=== PATIENT | female | born 1940 | race Caucasian/White ===

== ENCOUNTER → 2019-07-17 | Outpatient (CLI) | payer OTHER ==
--- NOTE | 2019-07-18 00:40 | PCVCIMAG ---
EXAM: BILATERAL SUPERFICIAL VENOUS DUPLEX INDICATION: Leg pain and swelling. FINDINGS: Right leg: No thrombus in the common femoral, main femoral, or popliteal veins. These veins are compressible. Right Great Saphenous Vein: At the saphenofemoral junction the diameter is 6.8 mm, in the mid thigh it is absent, and in the calf it is 3.7 mm. There is not significant venous insufficiency/reflux throughout. Venous insufficiency/reflux duration is 0 seconds. Right Small Saphenous Vein: At the saphenopopliteal junction the diameter is 4.3 mm, and in the calf it is 4.2 mm. There is not significant venous insufficiency/reflux throughout. Venous insufficiency/reflux duration is 0 seconds. There is a cranial extension present. Left leg: No thrombus in the common femoral, main femoral, or popliteal veins. These veins are compressible. Left Great Saphenous Vein: At the saphenofemoral junction the diameter is 11.0 mm, in the mid thigh it is 11.1 mm, and in the calf it is 7.0 mm. There is significant venous insufficiency/reflux throughout. Venous insufficiency/reflux duration is 1.2 seconds. Left Small Saphenous Vein: At the saphenopopliteal junction the diameter is 3.9 mm, and in the calf it is 3.9 mm. There is not significant venous insufficiency/reflux throughout. Venous insufficiency/reflux duration is 0.3 seconds. There is not a cranial extension present. IMPRESSION: Right Great Saphenous Vein: No significant venous insufficiency/reflux is present as noted above. Right Small Saphenous Vein: No significant venous insufficiency/reflux is present as noted above. Left Great Saphenous Vein: Significant venous insufficiency/reflux is present as noted above. Left Small Saphenous Vein: No significant venous insufficiency/reflux is present as noted above. Incidental note is made of venous insufficiency/reflux in the right and main femoral veins with reflux duration up to 0.6 seconds. LOC:[id number]
== END | disposition home or self-care (01) ==
LOC: PCVCIMAG 12:44
PROVIDERS: ATTEND Emergency Medicine
DX: E11.42 Type 2 diabetes mellitus with diabetic polyneuropathy (principal); L97.929 Non-pressure chronic ulcer of unspecified part of left lower leg with unspecified severity; M79.669 Pain in unspecified lower leg; M79.89 Other specified soft tissue disorders; Z79.4 Long term (current) use of insulin; Z88.1 Allergy status to other antibiotic agents
CPT/HCPCS: 93970

== ENCOUNTER → 2019-08-05 | Outpatient (CLI) | payer OTHER ==
--- NOTE | 2019-08-05 15:02 | PCVCIMAG ---
EXAM: BILATERAL LOWER EXTREMITY ARTERIAL DUPLEX INDICATION: Peripheral Arterial Disease. Leg pain. FINDINGS: Right Leg: Common femoral and profunda femoral arteries are patent. Superficial femoral and popliteal artery are patent. The anterior tibial, peroneal, and posterior tibial arteries are patent. Left Leg: Common femoral and profunda femoral arteries are patent. Increased systolic velocity 246 cm/s [place] superficial femoral artery consistent with 60-70% stenosis. Popliteal artery is patent. The anterior tibial, peroneal, and posterior tibial arteries are patent. IMPRESSION: No flow limiting stenosis in the right lower extremity. 60-70% stenosis [place] left superficial femoral artery. Otherwise no flow limiting stenosis in the left lower extremity. LOC:[id number]
== END | disposition home or self-care (01) ==
LOC: PCVCIMAG 11:32
PROVIDERS: ATTEND Nuclear Medicine Nuclear Cardiology
DX: I73.9 Peripheral vascular disease, unspecified (principal); M79.89 Other specified soft tissue disorders
CPT/HCPCS: 93925

== ENCOUNTER 2020-04-20 00:33 | Inpatient (IN) | payer MEDICARE ==
[~2020-04-20] VITALS: Ht 154.9 cm; Wt 107.1 kg
[2020-04-20 02:26] VITALS: BP 140/68
[2020-04-20] MEDS ORDERED: TORS20TA2 PO (03:07)
[2020-04-20] MEDS ORDERED: LACT1CAP2 PO (03:07)
[2020-04-20] MEDS ORDERED: OXYC1TAB15 PO (03:07)
[2020-04-20] MEDS ORDERED: LEVO75TA5 PO (03:07)
[2020-04-20] MEDS ORDERED: ASPI-630 PO (03:07)
[2020-04-20] MEDS ORDERED: ROPI0.254 PO (03:07)
[2020-04-20] MEDS ORDERED: FENT1PAT15 TP (03:07)
[2020-04-20] MEDS ORDERED: PANT40TA77 PO (03:07)
[2020-04-20] MEDS ORDERED: GABA300C18 PO (03:07)
[2020-04-20] MEDS ORDERED: MULT-445 PO (03:07)
[2020-04-20] MEDS ORDERED: MAGN400T5 PO (03:07)
[2020-04-20] MEDS ORDERED: POTA10TA12 PO (03:07)
[2020-04-20] MEDS ORDERED: INSU100V31 SQ (03:07)
[2020-04-20] MEDS ORDERED: INSU100I13 SQ (03:07)
[2020-04-20] MEDS ORDERED: GLIM4TAB8 PO (03:07)
[2020-04-20] MEDS ORDERED: NORT10CA PO (03:07)
[2020-04-20] MEDS ORDERED: AMLO5TAB10 PO (03:07)
[2020-04-20] MEDS: oxyCODONE/APAP 5/325 1 TAB TABLET PO PRN ×3 (03:31→21:02)
[2020-04-20 07:00] VITALS: BP 145/78
[2020-04-20] MEDS ORDERED: VANCOMYCIN PER PHARMACY MC PRN (09:30)
--- NOTE | 2020-04-20 09:40 | PDOC1 ---
History and Physical Date of Admission Date of Admission DATE: 04/20/20 TIME: 09:33 Source Source: Chart review, Patient History of Present Illness History of Present Illness Pt transferred from [facility] for worsening med problems. LE wounds that are not healing, wounds have looked worse and are now weeping. She has been on IV vanco and IV merrem outpatient for 3 weeks for these wounds and seeing Dr. Gregorio and she reports they are not improved. She also has new weigth gain, 5 lbs yesterday and 20lbs weight gain in a week. She has been taking her Torsemide and she complains about needing to use the bathroom every hour. She has marked hesitancy when she micturates, and often starts and stops, she has not seen a urologist. some weakness and leg pain, but that is standard she was admitted here to the COVID unit due to fever, SIRS pos, seen by me in full PPE Past Medical History Cardiovascular: CHF Pulmonary: No pertinent hx GI: No pertinent hx Musculoskeletal: low back pain Infectious disease: No pertinent hx Endocrine: Diabetes, Hypothyroidism Past Surgical History Past Surgical History: No pertinent history Family History Family History: Diabetes Social History Smoke: No ALCOHOL: none Drugs: None Current Medications Current Medications Current Medications Oxycodone/ Acetaminophen (Percocet 5/325) 1 tab PRN Q4HRS PRN PO PAIN Last administered on 04/20/20at 03:31; Start 04/20/20 at 03:15 Active Scripts Active Reported Lantus Solostar (Insulin Glargine,Hum.rec.anlog) 100 Unit/1 Ml Insuln.pen 25 Unit SQ BID Gabapentin (Gabapentin) 300 Mg Capsule 300 Mg PO HS Novolog (Insulin Aspart) 100 Unit/1 Ml Vial 100 Unit SQ TIDAC Torsemide 20 Mg Tablet 1 Tab PO BID Nortriptyline Hcl 10 Mg Capsule 1 Cap PO QHS Amlodipine Besylate 5 Mg Tablet 5 Mg PO DAILY FENTANYL 25mcg/hr (Fentanyl) 1 Each Patch.td72 1 Patch TP Q3DAYS Percocet 5-325 Mg Tablet (Oxycodone/Acetaminophen) 1 Each Tablet 1 Tab PO PRN Q4HRS PRN Glimepiride 4 Mg Tablet 1 Tab PO DAILY Multivitamins (Multivitamin) 1 Each Tablet 1 Tab PO MWF Aspirin 81 Mg Tab.chew 1 Tab PO DAILY Ropinirole Hcl 0.25 Mg Tablet 0.25 Mg PO TID Levothyroxine Sodium 75 Mcg Tablet 75 Mcg PO DAILYAC Magnesium Oxide 400 Mg Tablet 1 Tab PO BID Pantoprazole Sodium (Pantoprazole Sodium) 40 Mg Tablet.dr 40 Mg PO DAILYAC Acidophilus (Lactobacillus Acidophilus) 1 Each Capsule 1 Cap PO DAILY 14 Days Klor-Con 10 (Potassium Chloride) 10 Meq Tablet.er 1 Tab PO DAILY 30 Days Allergies Allergies: Coded Allergies: cyclosporine (Verified Allergy, Severe, 04/20/20) renal failure Sulfa (Sulfonamide Antibiotics) (Verified Allergy, Intermediate, Rash, 04/20/20) and hot flashes ROS General: YES: Fatigue, Malaise; No: Chills, Night Sweats, Appetite, Other PSYCHOLOGICAL ROS: No: Anxiety, Behavioral Disorder, Concentration difficultie, Decreased libido, Depression, Disorientation, Hostility, Irritablity, Memory difficulties, Mood Swings, Obsessive thoughts, Suicidal ideation, Other Eyes: No Blurry vision, No Decreased vision, No Double vision, No Dry eyes, No Excessive tearing, No Eye Pain, No Itchy Eyes, No Loss of vision, No Photophobia, No Scotomata, No Uses contacts, No Uses glasses, No Other HEENT: No: Heacaches, Visual Changes, Hearing change, Nasal congestion, Nasal discharge, Oral lesions, Sinus pain, Sore Throat, Epistaxis, Sneezing, Snoring, Tinnitus, Vertigo, Vocal changes, Other Respiratory: No: Cough, Hemoptysis, Orthopnea, Pleuritic Pain, Shortness of breath, SOB with excertion, Sputum Changes, Stridor, Tachypnea, Wheezing, Other Cardiovascular: No Chest Pain, No Palpitations, No Orthopnea, No Paroxysmal Noc. Dyspnea, No Edema, No Lt Headedness, No Other Gastrointestinal: No Nausea, No Vomiting, No Abdominal Pain, No Diarrhea, No Constipation, No Melena, No Hematochezia, No Other Genitourinary: YES Frequency, YES Retention, YES Other; No Dysuria, No Incontinence, No Hematuria, No Discharge, No Urgency, No Pain, No Flank Pain, No , No , No , No , No , No , No Musculoskeletal: Yes Gait Disturbance, Yes Joint Pain, Yes Joint Stiffness, Yes Muscular Weakness, Yes Pain In: (legs) Neurological: No Behavorial Changes, No Bowel/Bladder ControlChng, No Confusion, No Dizziness, No Headaches, No Impaired Coord/balance, No Memory Loss, No Numbness/Tingling, No Seizures, No Speech Problems, No Tremors, No Visual Changes, No Weakness, No Other Skin: No Dry Skin, No Eczema, No Hair Changes, No Lumps, No Mole Changes, No Mottling, No Nail Changes, No Pruritus, No Rash, No Skin Lesion Changes, No Other, No Acne Physical Exam General: Alert, Oriented X3, Cooperative, mild distress HEENT: PERRLA, EOMI, Mucous membr. moist/pink Lungs: Clear to auscultation, Normal air movement Heart: RRR, other (edema) Extremities: No cyanosis, Other (3 + LE edema) Skin: Other (marked LE wounds, weeping, other skin smooth and dry) Neuro: Normal speech Psych/Mental Status: Mental status NL, Mood NL Vitals Vitals Vital Signs Date Time Temp Pulse Resp B/P (MAP) Pulse Ox O2 Delivery O2 Flow Rate FiO2 04/20/20 05:03 Nasal Cannula 2.0 04/20/20 04:35 18 98 04/20/20 02:26 97.9 91 140/68 (92) 97.9 Labs Labs Laboratory Tests Test 04/20/20 07:55 Glucose (Fingerstick) 120 mg/dL (70-99) Laboratory Tests Test 04/20/20 07:55 Glucose (Fingerstick) 120 mg/dL (70-99) VTE Prophylaxis Ordered VTE Prophylaxis Devices: No VTE Pharmacological Prophylaxi: Yes Assessment/Plan Assessment/Plan acute LE wounds, cellulitis with wound infection to LE in Dm2, Dm2 in insulin with leg wounds, check A1c, consult wound care morbid obesity, BMI 47 CHF, acute on chronic systolic, on Demedex outpatient, consult CV team, but this may be edema from her sepsis and her leg infection LE edema, consult lymphedema OT team SEPSIS admit Justicifation of Admission Dx: Justifications for Admission: Justification of Admission Dx: Yes Cellulitis: Cellulitis (in Dm2, open wounds) LADI SALMERON MD Apr 20, 2020 09:40
[2020-04-20] MEDS ORDERED: VANCOMYCIN 2 GM in IV NORMAL SALINE 500ML BAG 500 ML IV ONE (10:00)
[2020-04-20 10:43] VITALS: BP 120/59
[2020-04-20] MEDS: amLODIPine BESYLATE 5 MG TABLET PO SCH (10:46)
[2020-04-20] MEDS: ASPIRIN CHEWABLE 81 MG TABLET. PO SCH (10:46)
[2020-04-20] MEDS: ASCORBIC ACID 500 MG TABLET PO SCH (10:46)
[2020-04-20] MEDS: PANTOPRAZOLE 40 MG TABLET.DR. PO SCH (10:46)
[2020-04-20] MEDS: fentaNYL 25MCG/HR PATCH 1 PATCH PATCH.TD72 TD SCH (10:46)
[2020-04-20] MEDS: LACTOBACILLUS RHAMNOSUS GG 1 CAPSULE. PO SCH (10:47)
[2020-04-20] MEDS: ENOXAPARIN 40 MG/0.4 ML SYRINGE. SQ SCH ×2 (10:47→21:01)
[2020-04-20] MEDS: INSULIN GLARGINE SYRINGE. SQ SCH ×3 (10:48→21:33)
--- NOTE | 2020-04-20 11:17 | PDOC2 ---
CARDIAC CONSULT DATE OF CONSULT Date of Consult DATE: 04/20/20 TIME: 11:07 REASON FOR CONSULT Reason for Consult: CHF REFERRING PHYSICIAN Referring Physician: Bhavin SOURCE Source: Chart review, Patient HISTORY OF PRESENT ILLNESS HISTORY OF PRESENT ILLNESS This is a pleasant 79 yo female admitted for complains of leg swelling, redness and some SOA. Reports that she has cellulitis being treated and actually had PICC recently placed for outpt antibiotic treatment due to persistent cellulitis. In the last week she has gaine about 20 pounds and yesterday alone gained about 5 pounds. It doesnt appera that she has been taking her home torsemide. She has redness and swelling on both legs and also with some wounds. No chest pain or palpitations but positive for XIONG. Smoked tobacco as a teenager fro about 4 yrs otherwsie no known occupational exposure to fumes and dust such as asbestos. Her chest CT is abnormal but no known hx of pulmonary HTN or ILD. No hx of CAD or arrhythmias. She did have CHF in the past and known for venous insufficiency particularly to LLE. Hx of of SUNDAR and uses CPAP machine at home with O2 at hs. No SOA at rest but more with exertion. Her leg swelling and redness remains which then prompted her to go to [facility] the [facility] and treansferred to [facility] due to lack of inpt rooms for PUI. No PND and orthopnea but she has been needing her O2 during the day since Sunday. I discussed with her son and she is compliant with her medications including her diuretic and she has been having frequency. PAST MEDICAL HISTORY Cardiovascular: HTN, Hyperlipidemia Pulmonary: No pertinent hx CENTRAL NERVOUS SYSTEM: Periperal neuropathy GI: GERD Heme/Onc: No pertinent hx Hepatobiliary: No pertinent hx Psych: No pertinent hx Musculoskeletal: Osteoarthritis Infectious disease: Other (LE cellulitis) ENT: No pertinent hx Renal/: No pertinent hx Endocrine: Diabetes (2), Hypothyroidism Dermatology: Other (bilateral LE wonds, cellulitis) PAST SURGICAL HISTORY Past Surgical History: Cataract Removal, Total hip replacement (right ), Other (ORIF RLE with hardware removal as well; venous ablation to LLE) FAMILY HISTORY Family History noncontributory SOCIAL HISTORY Smoke: No ALCOHOL: none Drugs: None Lives: with Family (son lives with her) CURRENT MEDICATIONS CURRENT MEDICATIONS Current Medications Medications (Trade) Dose Ordered Sig/Amena Route PRN Reason Start Time Stop Time Status Last Admin Dose Admin Oxycodone/ Acetaminophen (Percocet 5/325) 1 tab PRN Q4HRS PRN PO PAIN 04/20/20 03:15 04/20/20 10:46 Amlodipine Besylate (Norvasc) 5 mg DAILY PO 04/20/20 10:00 04/20/20 10:46 Aspirin (Aspirin Chewable) 81 mg DAILY PO 04/20/20 10:00 04/20/20 10:46 Fentanyl (Duragesic 25mcg/ Hr Patch) 1 patch Q3DAYS TD 04/20/20 10:00 04/20/20 10:46 Pantoprazole Sodium (Protonix) 40 mg DAILYAC PO 04/20/20 10:00 04/20/20 10:46 Insulin Glargine (Lantus Syringe) 25 unit BID SQ 04/20/20 11:00 04/20/20 10:48 Lactobacillus Rhamnosus (Culturelle) 1 cap DAILY PO 04/20/20 10:00 04/20/20 10:47 Ascorbic Acid (Vitamin C) 500 mg DAILY PO 04/20/20 10:00 04/20/20 10:46 Enoxaparin Sodium (Lovenox 40mg Syringe) 40 mg BID SQ 04/20/20 10:00 04/20/20 10:47 ALLERGIES ALLERGIES: Coded Allergies: cyclosporine (Verified Allergy, Severe, 04/20/20) renal failure Sulfa (Sulfonamide Antibiotics) (Verified Allergy, Intermediate, Rash, 04/20/20) and hot flashes ROS Review of System 14 point ROS evaluated with pertinent positives noted per HPI PHYSICAL EXAM General: Alert, Oriented X3, Cooperative, No acute distress HEENT: Mucous membr. moist/pink Lungs: Clear to auscultation, Other (diminished) Heart: Regular rate (SR), Other (distant heart sounds) Abdomen: Soft, Other (obese) Extremities: Other (erythema to bilateral LE and swelling) Neuro: Normal speech, Sensation intact Psych/Mental Status: Mental status NL, Mood NL MUSCULOSKELETAL: Osteoarthritic changes both hands VITALS/I&O VITALS/I&O: Vital Signs Date Time Temp Pulse Resp B/P (MAP) Pulse Ox O2 Delivery O2 Flow Rate FiO2 04/20/20 10:46 85 04/20/20 10:43 97.7 18 120/59 (79) 94 Nasal Cannula 2.0 97.7 I & O 04/19/20 04/19/20 04/20/20 15:00 23:00 07:00 Output Total 200 ml Balance -200 ml LABS Lab: Laboratory Tests Test 04/20/20 07:55 Glucose (Fingerstick) 120 mg/dL (70-99) H ASSESSMENT/PLAN ASSESSMENT/PLAN 1. LE cellulitis: on meropenem and vancomycin IV at home 2. Acute on chronic diastolic CHF: SOA better currently 3. Morbid obesity 4. HTN: controlled 5. HLP 6. Hypothyroidism 7. Hx of LLE moderate PAD and venous insufficiency 8. SUNDAR: uses CPAP 9. CINTHYA vs CKD: Cr 1.6 10. Hx of pyoderma gangrenosum: treated with cyclosporine/prednisone in the past 11. ILD? 12. PUI Recommendations 1. BMP, Mg, TSH. on torsemide at home. Lasix IV x1. Will review CXR and CT chest yesterday. Will consult pulmonary 2. Request [facility] records. Will obtain TTE if negative for covid. Obtain EKG from [facility] 3. Replace K and Mg as warranted. BISI HARRISON CHIEF OPERATOR [employer] Apr 20, 2020 11:17
[2020-04-20] MEDS ORDERED: FUROSEMIDE 40 MG/4 ML VIAL. IVP ONE (12:15)
[2020-04-20 12:27] LABS: BASO % 1 % (0-3); EOS # 0.2 x10^3/uL (0.0-0.7); EOS % 4 % (0-3); HEMATOCRIT 29.4 % (36.0-47.0); HEMOGLOBIN 9.4 g/dL (12.0-15.5); LYMPH # 1.1 x10^3/uL (1.0-4.8); LYMPH % 21 % (24-48); MEAN CORPUSCULAR HEMOGLOBIN 27 pg (25-35); MEAN CORPUSCULAR HGB CONC 32 g/dL (31-37); MEAN CORPUSCULAR VOLUME 85 fL (79-100); MONO # 0.7 x10^3/uL (0.0-1.1); MONO % 14 % (0-9); NEUT # 3.2 x10^3/uL (1.8-7.7); NEUT % 60 % (31-73); PLATELET COUNT 179 x10^3/uL (140-400); RED BLOOD COUNT 3.44 x10^6/uL (3.50-5.40); RED CELL DISTRIBUTION WIDTH 20.5 % (11.5-14.5); WHITE BLOOD COUNT 5.3 x10^3/uL (4.0-11.0)
[2020-04-20 12:50] LABS: ALBUMIN 2.3 g/dL (3.4-5.0); ALBUMIN/GLOBULIN RATIO 0.5 (1.0-1.7); ALK PHOS 89 U/L (46-116); ALT (SGPT) 35 U/L (14-59); ANION GAP 2 (6-14); AST (SGOT) 30 U/L (15-37); BLOOD UREA NITROGEN 51 mg/dL (7-20); BUN/CREATININE RATIO 39 (6-20); CALCIUM 8.8 mg/dL (8.5-10.1); CARBON DIOXIDE 37 mmol/L (21-32); CHLORIDE 102 mmol/L (98-107); CREATININE 1.3 mg/dL (0.6-1.0); GFR 39.7; GLUCOSE 150 mg/dL (70-99); MAGNESIUM 2.3 mg/dL (1.8-2.4); POTASSIUM 4.1 mmol/L (3.5-5.1); SODIUM 141 mmol/L (136-145); TOTAL BILIRUBIN 0.3 mg/dL (0.2-1.0); TOTAL PROTEIN 6.7 g/dL (6.4-8.2); VANC TR 12.9 mcg/mL (10.0-20.0)
[2020-04-20 13:00] LABS: ANISOCYTOSIS SLIGHT; PLT ESTIMATE ADEQUATE (ADEQUATE)
--- NOTE | 2020-04-20 13:37 | NUR ---
Pharmacy Vancomycin Dosing Note S:Consulted to monitor and dose vancomycin started . O:AMINAH STANLEY is a 79 year old F with Cellulitis . Height: 5 feet, 1 inches Weight: 113.9 kg [place] Body Weight: 47.80 Adjusted Body Weight: 74.24 Dosing Weight: Other Antibiotics: MEROPENEM LABS: Last BUN: 51 Last Creatinine: 1.3 Creatinine Clearance: 43 mL/min Last WBC: 5.3 Last Procalcitonin: Tmax (past 24 hours): 98.2 Microbiology: I/O: -/200 Drug Levels: Last Random level: 12.9 on 04/20/20 at 1215 Last dose given at Vancomycin Dosing: Loading Dose: x1 Dosing Weight: Target Trough: 10-20 A: Pt has been on outpatient vanco and boy x 3 weeks; pt was receiving 1.25gm daily, random level today=12.9, unsure of timing of last dose P: 1. Resume Vancomycin 1250 mg IV q24h, check level prior to 3rd dose 2. Follow up Trough level on 04/22/20 at 1430 3. Pharmacy will continue to monitor, follow and adjust therapy as needed. [facility], 04/20/20 [id number]
[2020-04-20] MEDS: MEROPENEM 500 MG in IV NORMAL SALINE 50ML 50 ML IV SCH ×2 (13:38→21:01)
[2020-04-20] MEDS: rOPINIRole 0.25 MG TABLET. PO SCH ×2 (13:41→21:01)
[2020-04-20 14:16] LABS: BILIRUBIN,URINE NEGATIVE (NEG); CLARITY,URINE CLEAR; COLOR,URINE YELLOW; NITRITE,URINE NEGATIVE (NEG); PROTEIN,URINE 100 mg/dL (NEG-TRACE); UROBILINOGEN,URINE 0.2 mg/dL (0.2 mg/dL)
[2020-04-20 14:29] LABS: HYALINE CASTS, URINE FEW /HPF; SQUAMOUS EPITHELIAL CELL,UR FEW /LPF
[2020-04-20 14:30] LABS: BACTERIA,URINE 0 /HPF (0-FEW); WBC,URINE 0 /HPF (0-4)
--- NOTE | 2020-04-20 14:30 | PDOC ---
Infectious Disease Note Vital Signs: Vital Signs Vital Signs Date Time Temp Pulse Resp B/P (MAP) Pulse Ox O2 Delivery O2 Flow Rate FiO2 04/20/20 10:46 85 04/20/20 10:43 97.7 18 120/59 (79) 94 Nasal Cannula 2.0 97.7 Medications: Inpatient Meds: Current Medications Medications (Trade) Dose Ordered Sig/Amena Start Time Stop Time Status Last Admin Dose Admin Amlodipine Besylate (Norvasc) 5 mg DAILY 04/20/20 10:00 04/20/20 10:46 5 MG Ascorbic Acid (Vitamin C) 500 mg DAILY 04/20/20 10:00 04/20/20 10:46 500 MG Aspirin (Aspirin Chewable) 81 mg DAILY 04/20/20 10:00 04/20/20 10:46 81 MG Enoxaparin Sodium (Lovenox 40mg Syringe) 40 mg BID 04/20/20 10:00 04/20/20 10:47 40 MG Enoxaparin Sodium (Lovenox Per Pharmacy Prophylaxis Dosing) 1 each PRN DAILY PRN 04/20/20 09:45 Fentanyl (Duragesic 25mcg/ Hr Patch) 1 patch Q3DAYS 04/20/20 10:00 04/20/20 10:46 1 PATCH Furosemide (Lasix) 40 mg 1X ONCE 04/20/20 12:15 04/20/20 12:16 DC 04/20/20 13:39 40 MG Gabapentin (Neurontin) 300 mg HS 04/20/20 21:00 Insulin Glargine (Lantus Syringe) 25 unit BID 04/20/20 11:00 Lactobacillus Rhamnosus (Culturelle) 1 cap DAILY 04/20/20 10:00 04/20/20 10:47 1 CAP Levothyroxine Sodium (Synthroid) 75 mcg DAILYAC 04/21/20 07:30 Meropenem 500 mg/ Sodium Chloride 50 ml @ 100 mls/hr Q8HRS 04/20/20 14:00 04/20/20 13:38 100 MLS/HR Multivitamins (Thera M Plus) 1 tab QMWF 04/21/20 16:00 Nortriptyline HCl (Pamelor) 10 mg QHS 04/20/20 21:00 Oxycodone/ Acetaminophen (Percocet 5/325) 1 tab PRN Q4HRS PRN 04/20/20 03:15 04/20/20 10:46 1 TAB Pantoprazole Sodium (Protonix) 40 mg DAILYAC 04/20/20 10:00 04/20/20 10:46 40 MG Ropinirole HCl (Requip) 0.25 mg TID 04/20/20 14:00 04/20/20 13:41 0.25 MG Torsemide (Demadex) 20 mg BID 04/20/20 21:00 Vancomycin HCl (Vanco Per Pharmacy) 1 each PRN DAILY PRN 04/20/20 09:30 04/20/20 13:36 1 EACH Vancomycin HCl (Vancomycin Trough Level) 1 each 1X ONCE 04/22/20 14:30 04/22/20 14:31 Vancomycin HCl 1.25 gm/Sodium Chloride 250 ml @ 167 mls/hr Q24H 04/20/20 15:00 Vancomycin HCl 2 gm/Sodium Chloride 500 ml @ 250 mls/hr 1X ONCE 04/20/20 10:00 04/20/20 11:59 Cancel Zinc Sulfate (Orazinc) 220 mg DAILY 04/21/20 09:00 Labs: Lab Laboratory Tests Test 04/20/20 07:55 04/20/20 11:10 04/20/20 12:15 Glucose (Fingerstick) 120 mg/dL (70-99) 157 mg/dL (70-99) White Blood Count 5.3 x10^3/uL (4.0-11.0) Red Blood Count 3.44 x10^6/uL (3.50-5.40) Hemoglobin 9.4 g/dL (12.0-15.5) Hematocrit 29.4 % (36.0-47.0) Mean Corpuscular Volume 85 fL (79-100) Mean Corpuscular Hemoglobin 27 pg (25-35) Mean Corpuscular Hemoglobin Concent 32 g/dL (31-37) Red Cell Distribution Width 20.5 % (11.5-14.5) Platelet Count 179 x10^3/uL (140-400) Neutrophils (%) (Auto) 60 % (31-73) Lymphocytes (%) (Auto) 21 % (24-48) Monocytes (%) (Auto) 14 % (0-9) Eosinophils (%) (Auto) 4 % (0-3) Basophils (%) (Auto) 1 % (0-3) Neutrophils # (Auto) 3.2 x10^3/uL (1.8-7.7) Lymphocytes # (Auto) 1.1 x10^3/uL (1.0-4.8) Monocytes # (Auto) 0.7 x10^3/uL (0.0-1.1) Eosinophils # (Auto) 0.2 x10^3/uL (0.0-0.7) Basophils # (Auto) 0.0 x10^3/uL (0.0-0.2) Platelet Estimate Adequate (ADEQUATE) Basophilic Stippling Present Anisocytosis Slight Sodium Level 141 mmol/L (136-145) Potassium Level 4.1 mmol/L (3.5-5.1) Chloride Level 102 mmol/L (98-107) Carbon Dioxide Level 37 mmol/L (21-32) Anion Gap 2 (6-14) Blood Urea Nitrogen 51 mg/dL (7-20) Creatinine 1.3 mg/dL (0.6-1.0) Estimated GFR (Cockcroft-Gault) 39.7 BUN/Creatinine Ratio 39 (6-20) Glucose Level 150 mg/dL (70-99) Calcium Level 8.8 mg/dL (8.5-10.1) Magnesium Level 2.3 mg/dL (1.8-2.4) Total Bilirubin 0.3 mg/dL (0.2-1.0) Aspartate Amino Transf (AST/SGOT) 30 U/L (15-37) Alanine Aminotransferase (ALT/SGPT) 35 U/L (14-59) Alkaline Phosphatase 89 U/L (46-116) KM-Orh-G-Type Natriuretic Peptide 1374 pg/mL (0-449) Total Protein 6.7 g/dL (6.4-8.2) Albumin 2.3 g/dL (3.4-5.0) Albumin/Globulin Ratio 0.5 (1.0-1.7) Thyroid Stimulating Hormone (TSH) 3.071 uIU/mL (0.358-3.74) Vancomycin Level Trough 12.9 mcg/mL (10.0-20.0) Vancomycin Last Dose Date 04/19/20 Vancomycin Last Dose Time 0900 Objective: Assessment: Patient seen and examined ID consult dictated Plan: Plan of Care [id number] Thank you LAYLA CRAWFORD MD Apr 20, 2020 14:30
[2020-04-20 15:00] VITALS: BP 118/62
[2020-04-20] MEDS ORDERED: VANCOMYCIN 1.25 GM in IV NORMAL SALINE 250ML 250 ML IV SCH (15:00)
[2020-04-20] MEDS: MICAFUNGIN 100 MG in IV DEXTROSE 5% 100ML 100 ML IV SCH (15:14)
--- NOTE | 2020-04-20 15:29 | NUR ---
Wound Care Wound care consult for BLE wounds. Pt has BLE stasis ulcers that are being treated outpatient by [facility] wound care [place]. Cleansed wounds, applied xeroform, ABD, Kerlix, BLAKE wraps and medigrips size G per pt request. Pt uses collagen at home but there was collagen still present in wounds so did not reapply. Recommend to change dressings every other day and PRN for drainage. No other wounds noted. WC will continue to follow for possible changes. Per Dr Baca, pt is not a candidate for HBO.
--- NOTE | 2020-04-20 17:14 | CONS ---
DATE OF CONSULTATION: 04/20/2020 REASON FOR CONSULTATION: Chronic lower extremity wounds, antibiotic management. REFERRING PHYSICIAN: Dr. Delcid. HISTORY OF PRESENT ILLNESS: A 79-year-old female who presented with complaints of leg swelling, redness with some shortness of breath. She was transferred to [facility] with concerns of COVID suspect. The patient has a history of left lower extremity chronic venous insufficiency with lymphedema, CHF, pulmonary hypertension. The patient was seen by Dr. Fuller at [facility] along with Dr. Parmar and Dr. Bojorquez from wound team for chronic lower extremity wounds for the last 3 years. She underwent I and D and was started on IV vancomycin and meropenem, which she has been on through left upper extremity PICC line for the last 3 weeks. ID consult has been requested for further evaluation and treatment here. The patient is restarted on vancomycin and meropenem. Currently, she denies any fevers, headache, sore throat, nausea, vomiting, diarrhea, abdominal pain, symptoms. PAST MEDICAL HISTORY: Hypertension, hyperlipidemia, peripheral neuropathy, GERD, osteoarthritis, chronic venous insufficiency with lymphedema of lower extremities, fungal dermatitis below the breast and groin, diabetes, hypothyroidism, status post I and D of lower extremity wounds about a month ago at [facility] and was started on IV vancomycin and meropenem. PAST SURGICAL HISTORY: Cataract removal, total hip replacement right, ORIF right lower extremity with hardware removal, venous ablation to left lower extremity, status post I and D of bilateral lower extremity wounds about 3 weeks ago. FAMILY HISTORY: As per HPI. SOCIAL HISTORY: No smoking, ETOH or illicit drug use. Lives with son who helps her out with IV antibiotics. CURRENT MEDICATION: IV vancomycin and meropenem. Other medications reviewed in medication list. ALLERGIES: CYCLOSPORINE, SULFA. REVIEW OF SYSTEMS: Negative except for above in HPI. PHYSICAL EXAMINATION: VITAL SIGNS: Temperature 97.7, pulse 85, respiratory rate 18, blood pressure 120/59, oxygen saturation 94% on 2 liters by nasal cannula. GENERAL: Alert, oriented x 3 female, lying in bed comfortably, in no acute distress. HEENT: Normocephalic, atraumatic, anicteric. No thrush. NECK: Supple, no JVD. LUNGS: Clear bilaterally. No wheezing. Decreased breath sounds at the bases. HEART: S1, S2, no murmurs. ABDOMEN: Soft, obese. Bowel sounds present, nontender, nondistended. EXTREMITIES: Bilateral lower extremity erythema, swelling. Wound dressings taken down. The patient has multiple wounds over the left lower extremity. They appear clean, has wound treatment application, right lower extremity wound appears to be stable. There is a small area of abrasion just above the dressing, which appears to be from trauma, but no purulence noted. Yeast present. Onychomycosis present. Dermatitis present. Left upper extremity PICC line is clean. DERMATOLOGIC: Warm, dry. No generalized rash. Does have fungal dermatitis below both breasts, groin and lower extremity as above. NEUROLOGIC: Alert and oriented x 3, grossly nonfocal. PSYCHIATRIC: Cooperative, appropriate mood and affect. LABORATORY DATA: WBC 5.3, hemoglobin 9.4, hematocrit 29.4, platelets 179. Sodium 141, potassium 4.1, chloride 102, bicarbonate 37, BUN 51, creatinine 1.3, glucose 150. BNP 1374, albumin 2.3. TSH normal. COVID-19 pending. UA pending. IMAGING: None here. IMPRESSION: 1. Chronic bilateral lower extremity wounds for 3 years with recent infection diagnosed at [facility], status post debridement at outside hospital about 3-4 weeks ago, on IV vancomycin and meropenem bobby SPIVEY MD, Dr. Fuller along with wound care treatment. 2. Dyspnea with febrile illness, 3. History of congestive heart failure. 4. Chronic venous insufficiency with chronic lymphedema. 5. Anemia. 6. Fungal dermatitis. 7. Obesity. 8. Peripheral neuropathy. 9. Diabetes. 10. Hypothyroidism. 11. COVID suspect, results are pending at this time. RECOMMENDATIONS: 1. Continue IV vancomycin and meropenem. 2. Add micafungin. 3. Monitor renal functions closely. Adjust dose of vancomycin per pharmacy protocol. 4. Continue wound care per wound team. 5. We will need to review ID consultation and progress notes, micro lab from [facility] 6. Elevate both lower extremities. 7. Continue PICC line care. 8. Follow up labs and cultures. 9. Continue supportive care. Discussed with RN Thank you, Dr. Delcid, for consulting Infectious Disease to participate in this patient's care. If you have any questions, do not hesitate to contact me. Discussed with nursing. LAYLA CRAWFORD MD DR: TANIKA/jeronimo JOB#: [id number] / [id number] SARAH
--- NOTE | 2020-04-20 17:28 | NUR ---
SW following. SW referral for placement. Spoke with RN and reviewed chart. Pt from home with 24 hour care from son. Pt on IV Vancomycin and 2l 02. Pt has home 02 per the son. PT/OT recommendation is for SNU. Spoke with son who is POA who declined SNU referral. Pt was seen at [facility] about 3 years ago per the son. Pt has [facility] with weekly wound care visits. Discharge plan is home with family and resumption of HH. CHRIS completed patient Choice of Vendor form. SW to follow.
--- NOTE | 2020-04-20 18:49 | CONS ---
DATE OF CONSULTATION: PULMONARY CONSULTATION ATTENDING PHYSICIAN: Dr. De Paz. REASON FOR CONSULTATION: Hypoxic respiratory failure. HISTORY OF PRESENT ILLNESS: The patient is a 79-year-old morbidly obese patient with a BMI of 47.2. The patient had no significant tobacco history. She was initially treated for cellulitis and lower extremity wounds. She had a PICC line and was on IV antibiotics as an outpatient with meropenem and vancomycin. She was brought into the hospital with increasing shortness of breath. The patient has put on 5 pounds weight in the last 24 hours and over 20 pounds weight gain in a week. The patient has also marked urinary hesitancy. She has not seen a urologist. She was noted to have a CT chest done at [facility], which was reviewed by me. This was dated 04/19/2020. It has not been officially read yet. I do not see any definite pulmonary embolism. However, there were bilateral interstitial infiltrates suggestive of CHF. No old scan was available for comparison. The patient received IV Lasix. She is currently requiring 2 liters of oxygen at 98% saturation. The patient has history of sleep apnea for which she uses CPAP. I have been asked to see her for further evaluation. PAST MEDICAL HISTORY: Significant for history of congestive heart failure, likely diastolic. History of chronic back pain, history of hypothyroidism and diabetes. PAST SURGICAL HISTORY: No recent surgeries. ALLERGIES: SULFA, CYCLOSPORINE. REVIEW OF SYSTEMS: Ten-point system obtained. Pertinent positives discussed in my history of present illness, otherwise noncontributory. All systems that were negative were reviewed as well. MEDICATIONS: Reviewed including antibiotic, vancomycin, micafungin and meropenem and she is also on Lovenox for DVT prophylaxis. The patient received one dose of Lasix. SOCIAL HISTORY: She denies any significant tobacco history. FAMILY HISTORY: Noncontributory to lungs. PHYSICAL EXAMINATION: On examination, which was done via telemedicine. VITAL SIGNS: Reviewed. She is afebrile, pulse ox 98% on 2 liters, blood pressure 118/62. SKIN: No obvious skin rash. EXTREMITIES: She has lower extremity wounds. LABORATORY DATA: Reviewed. White cell count 5.3, hemoglobin 9.4 and platelets are 179. Her BUN is ____ and creatinine of 1.3. Albumin 2.3. IMPRESSION: 1. Acute hypoxic respiratory failure secondary to acute on chronic diastolic heart failure. This is a patient who has put on 20 pounds in last [address] chest done at [facility] with no evidence of PE, but bilateral interstitial infiltrates suggestive of congestive heart failure. 3. Underlying morbid obesity and obstructive sleep apnea, on home CPAP with good compliance. 4. Prerenal azotemia. 5. Severe protein-calorie malnutrition. RECOMMENDATIONS: 1. Continue with present oxygen. 2. P.r.n. Lasix, keeping a close eye on her renal function. 3. We will obtain followup chest x-ray. 4. Antibiotics for her cellulitis and chronic wounds per Infectious Disease. 5. DVT prophylaxis with Lovenox. 6. Obtain echocardiogram and Cardiology consult and recommendation. 7. Discussed with RN. Consultation done via telemedicine due to COVID suspected pandemia. VICTORINA FERREIRA MD DR: HIWOT/jeronimo JOB#: [id number] / [id number] ESPERANZA Hendrickson
[2020-04-20 19:00] VITALS: BP 123/53
[2020-04-20] MEDS ORDERED: DEXTROSE 50% 25 GM / 50ML DISP.SYRIN. IV PRN (20:15)
[2020-04-20] MEDS ORDERED: TORSEMIDE 20 MG TABLET. PO SCH (21:00)
[2020-04-20] MEDS: NYSTATIN TOPICAL POWDER 15GM BOTTLE. TP SCH (21:00)
[2020-04-20] MEDS: NORTRIPTYLINE 10 MG CAPSULE PO SCH (21:01)
[2020-04-20] MEDS: GABAPENTIN 300 MG CAPSULE. PO SCH (21:02)
[2020-04-20 23:00] VITALS: BP 123/53
[2020-04-21 02:09] LABS: HEMOGLOBIN A1C 6.5 % (4.8-5.6)
[2020-04-21 03:00] VITALS: BP 134/63
[2020-04-21] MEDS: MEROPENEM 500 MG in IV NORMAL SALINE 50ML 50 ML IV SCH ×3 (06:27→20:36)
[2020-04-21] MEDS: PANTOPRAZOLE 40 MG TABLET.DR. PO SCH (06:27)
[2020-04-21] MEDS: LEVOTHYROXINE 75 MCG TABLET PO SCH (06:27)
[2020-04-21 07:00] VITALS: BP 152/85
--- NOTE | 2020-04-21 08:39 | PDOC ---
PULMONARY PROGRESS NOTES DATE: 04/21/20 TIME: 08:39 Subjective patient resting on 2 liters N/C , reports she is breathing much better today, denies cough or CP a-febrile, no overnight concerns from nursing Vitals Vital Signs Date Time Temp Pulse Resp B/P (MAP) Pulse Ox O2 Delivery O2 Flow Rate FiO2 04/21/20 03:00 97.9 73 18 134/63 (86) 95 Nasal Cannula 2.0 97.9 ROS: No Nausea, No Chest Pain, No Abdominal Pain, No Increase Cough General: Alert Lungs: Crackles (bases ) Cardiovascular: S1, S2 Abdomen: Soft, Non-tender Neuro Exam: Alert Extremities: Other (+2 BLE ) Skin: Warm, Dry Labs Laboratory Tests Test 04/20/20 07:55 04/20/20 11:10 04/20/20 12:15 04/20/20 13:46 Glucose (Fingerstick) 120 mg/dL (70-99) 157 mg/dL (70-99) White Blood Count 5.3 x10^3/uL (4.0-11.0) Red Blood Count 3.44 x10^6/uL (3.50-5.40) Hemoglobin 9.4 g/dL (12.0-15.5) Hematocrit 29.4 % (36.0-47.0) Mean Corpuscular Volume 85 fL (79-100) Mean Corpuscular Hemoglobin 27 pg (25-35) Mean Corpuscular Hemoglobin Concent 32 g/dL (31-37) Red Cell Distribution Width 20.5 % (11.5-14.5) Platelet Count 179 x10^3/uL (140-400) Neutrophils (%) (Auto) 60 % (31-73) Lymphocytes (%) (Auto) 21 % (24-48) Monocytes (%) (Auto) 14 % (0-9) Eosinophils (%) (Auto) 4 % (0-3) Basophils (%) (Auto) 1 % (0-3) Neutrophils # (Auto) 3.2 x10^3/uL (1.8-7.7) Lymphocytes # (Auto) 1.1 x10^3/uL (1.0-4.8) Monocytes # (Auto) 0.7 x10^3/uL (0.0-1.1) Eosinophils # (Auto) 0.2 x10^3/uL (0.0-0.7) Basophils # (Auto) 0.0 x10^3/uL (0.0-0.2) Platelet Estimate Adequate (ADEQUATE) Basophilic Stippling Present Anisocytosis Slight Sodium Level 141 mmol/L (136-145) Potassium Level 4.1 mmol/L (3.5-5.1) Chloride Level 102 mmol/L (98-107) Carbon Dioxide Level 37 mmol/L (21-32) Anion Gap 2 (6-14) Blood Urea Nitrogen 51 mg/dL (7-20) Creatinine 1.3 mg/dL (0.6-1.0) Estimated GFR (Cockcroft-Gault) 39.7 BUN/Creatinine Ratio 39 (6-20) Glucose Level 150 mg/dL (70-99) Hemoglobin A1c 6.5 % (4.8-5.6) Calcium Level 8.8 mg/dL (8.5-10.1) Magnesium Level 2.3 mg/dL (1.8-2.4) Total Bilirubin 0.3 mg/dL (0.2-1.0) Aspartate Amino Transf (AST/SGOT) 30 U/L (15-37) Alanine Aminotransferase (ALT/SGPT) 35 U/L (14-59) Alkaline Phosphatase 89 U/L (46-116) AR-Rdj-U-Type Natriuretic Peptide 1374 pg/mL (0-449) Total Protein 6.7 g/dL (6.4-8.2) Albumin 2.3 g/dL (3.4-5.0) Albumin/Globulin Ratio 0.5 (1.0-1.7) Thyroid Stimulating Hormone (TSH) 3.071 uIU/mL (0.358-3.74) Vancomycin Level Trough 12.9 mcg/mL (10.0-20.0) Vancomycin Last Dose Date 04/19/20 Vancomycin Last Dose Time 0900 Urine Collection Type Unknown Urine Color Yellow Urine Clarity Clear Urine pH 6.0 (<5.0-8.0) Urine Specific [place] 1.020 (1.000-1.030) Urine Protein 100 mg/dL (NEG-TRACE) Urine Glucose (UA) Negative mg/dL (NEG) Urine Ketones (Stick) Negative mg/dL (NEG) Urine Blood Negative (NEG) Urine Nitrite Negative (NEG) Urine Bilirubin Negative (NEG) Urine Urobilinogen Dipstick 0.2 mg/dL (0.2 mg/dL) Urine Leukocyte Esterase Negative (NEG) Urine RBC 1-2 /HPF (0-2) Urine WBC 0 /HPF (0-4) Urine Squamous Epithelial Cells Few /LPF Urine Bacteria 0 /HPF (0-FEW) Urine Hyaline Casts Few /HPF Urine Mucus Slight /LPF Test 04/20/20 16:28 04/20/20 21:13 04/21/20 06:30 04/21/20 08:17 Glucose (Fingerstick) 164 mg/dL (70-99) 230 mg/dL (70-99) 59 mg/dL (70-99) Creatinine 1.5 mg/dL (0.6-1.0) Estimated GFR (Cockcroft-Gault) 33.7 Laboratory Tests Test 04/20/20 11:10 04/20/20 12:15 04/20/20 13:46 04/20/20 16:28 Glucose (Fingerstick) 157 mg/dL (70-99) 164 mg/dL (70-99) White Blood Count 5.3 x10^3/uL (4.0-11.0) Red Blood Count 3.44 x10^6/uL (3.50-5.40) Hemoglobin 9.4 g/dL (12.0-15.5) Hematocrit 29.4 % (36.0-47.0) Mean Corpuscular Volume 85 fL (79-100) Mean Corpuscular Hemoglobin 27 pg (25-35) Mean Corpuscular Hemoglobin Concent 32 g/dL (31-37) Red Cell Distribution Width 20.5 % (11.5-14.5) Platelet Count 179 x10^3/uL (140-400) Neutrophils (%) (Auto) 60 % (31-73) Lymphocytes (%) (Auto) 21 % (24-48) Monocytes (%) (Auto) 14 % (0-9) Eosinophils (%) (Auto) 4 % (0-3) Basophils (%) (Auto) 1 % (0-3) Neutrophils # (Auto) 3.2 x10^3/uL (1.8-7.7) Lymphocytes # (Auto) 1.1 x10^3/uL (1.0-4.8) Monocytes # (Auto) 0.7 x10^3/uL (0.0-1.1) Eosinophils # (Auto) 0.2 x10^3/uL (0.0-0.7) Basophils # (Auto) 0.0 x10^3/uL (0.0-0.2) Platelet Estimate Adequate (ADEQUATE) Basophilic Stippling Present Anisocytosis Slight Sodium Level 141 mmol/L (136-145) Potassium Level 4.1 mmol/L (3.5-5.1) Chloride Level 102 mmol/L (98-107) Carbon Dioxide Level 37 mmol/L (21-32) Anion Gap 2 (6-14) Blood Urea Nitrogen 51 mg/dL (7-20) Creatinine 1.3 mg/dL (0.6-1.0) Estimated GFR (Cockcroft-Gault) 39.7 BUN/Creatinine Ratio 39 (6-20) Glucose Level 150 mg/dL (70-99) Hemoglobin A1c 6.5 % (4.8-5.6) Calcium Level 8.8 mg/dL (8.5-10.1) Magnesium Level 2.3 mg/dL (1.8-2.4) Total Bilirubin 0.3 mg/dL (0.2-1.0) Aspartate Amino Transf (AST/SGOT) 30 U/L (15-37) Alanine Aminotransferase (ALT/SGPT) 35 U/L (14-59) Alkaline Phosphatase 89 U/L (46-116) RF-Tmo-Y-Type Natriuretic Peptide 1374 pg/mL (0-449) Total Protein 6.7 g/dL (6.4-8.2) Albumin 2.3 g/dL (3.4-5.0) Albumin/Globulin Ratio 0.5 (1.0-1.7) Thyroid Stimulating Hormone (TSH) 3.071 uIU/mL (0.358-3.74) Vancomycin Level Trough 12.9 mcg/mL (10.0-20.0) Vancomycin Last Dose Date 04/19/20 Vancomycin Last Dose Time 0900 Urine Collection Type Unknown Urine Color Yellow Urine Clarity Clear Urine pH 6.0 (<5.0-8.0) Urine Specific [place] 1.020 (1.000-1.030) Urine Protein 100 mg/dL (NEG-TRACE) Urine Glucose (UA) Negative mg/dL (NEG) Urine Ketones (Stick) Negative mg/dL (NEG) Urine Blood Negative (NEG) Urine Nitrite Negative (NEG) Urine Bilirubin Negative (NEG) Urine Urobilinogen Dipstick 0.2 mg/dL (0.2 mg/dL) Urine Leukocyte Esterase Negative (NEG) Urine RBC 1-2 /HPF (0-2) Urine WBC 0 /HPF (0-4) Urine Squamous Epithelial Cells Few /LPF Urine Bacteria 0 /HPF (0-FEW) Urine Hyaline Casts Few /HPF Urine Mucus Slight /LPF Test 04/20/20 21:13 04/21/20 06:30 04/21/20 08:17 Glucose (Fingerstick) 230 mg/dL (70-99) 59 mg/dL (70-99) Creatinine 1.5 mg/dL (0.6-1.0) Estimated GFR (Cockcroft-Gault) 33.7 Medications Active Scripts Medications Dose Route/Sig Max Daily Dose Days Date Category Lantus Solostar (Insulin Glargine,Hum.rec.anlog) 100 Unit/1 Ml Insuln.pen 25 Unit SQ BID 04/20/20 Reported Gabapentin (Gabapentin) 300 Mg Capsule 300 Mg PO HS 04/20/20 Reported Novolog (Insulin Aspart) 100 Unit/1 Ml Vial 100 Unit SQ TIDAC 04/20/20 Reported Torsemide 20 Mg Tablet 1 Tab PO BID 04/20/20 Reported Nortriptyline Hcl 10 Mg Capsule 1 Cap PO QHS 04/20/20 Reported Amlodipine Besylate 5 Mg Tablet 5 Mg PO DAILY 04/20/20 Reported FENTANYL 25mcg/hr (Fentanyl) 1 Each Patch.td72 1 Patch TP Q3DAYS 04/20/20 Reported Percocet 5-325 Mg Tablet (Oxycodone/Acetaminophen) 1 Each Tablet 1 Tab PO PRN Q4HRS PRN 04/20/20 Reported Glimepiride 4 Mg Tablet 1 Tab PO DAILY 04/20/20 Reported Multivitamins (Multivitamin) 1 Each Tablet 1 Tab PO MWF 04/20/20 Reported Aspirin 81 Mg Tab.chew 1 Tab PO DAILY 04/20/20 Reported Ropinirole Hcl 0.25 Mg Tablet 0.25 Mg PO TID 04/20/20 Reported Levothyroxine Sodium 75 Mcg Tablet 75 Mcg PO DAILYAC 04/20/20 Reported Magnesium Oxide 400 Mg Tablet 1 Tab PO BID 04/20/20 Reported Pantoprazole Sodium (Pantoprazole Sodium) 40 Mg Tablet.dr 40 Mg PO DAILYAC 04/20/20 Reported Acidophilus (Lactobacillus Acidophilus) 1 Each Capsule 1 Cap PO DAILY 14 04/20/20 Reported Klor-Con 10 (Potassium Chloride) 10 Meq Tablet.er 1 Tab PO DAILY 30 04/20/20 Reported Impression . IMPRESSION: 1. Acute hypoxic respiratory failure secondary to acute on chronic diastolic heart failure. This is a patient who has put on 20 pounds in last [address] chest done at [facility] with no evidence of PE, but bilateral interstitial infiltrates suggestive of congestive heart failure. 3. Underlying morbid obesity and obstructive sleep apnea, on home CPAP with good compliance. 4. Prerenal azotemia. 5. Severe protein-calorie malnutrition. Plan . RECOMMENDATIONS: 1. Continue with present oxygen, requiring on 2 liters N/C 2. P.r.n. Lasix, keeping a close eye on her renal function. 3. Follow on CXR 4. Antibiotics for her cellulitis and chronic wounds per Infectious Disease. 5. DVT prophylaxis with Lovenox. 6. Follow Cardiology recs 7. Discussed with RN. VICTORINA FERREIRA MD Apr 21, 2020 08:39
[2020-04-21 08:51] LABS: CALCIUM 8.1 mg/dL (8.5-10.1); CREATININE 1.4 mg/dL (0.6-1.0); GFR 36.5; MAGNESIUM 2.2 mg/dL (1.8-2.4); POTASSIUM 3.6 mmol/L (3.5-5.1)
[2020-04-21] MEDS: INSULIN GLARGINE SYRINGE. SQ SCH ×2 (09:00→20:46)
--- NOTE | 2020-04-21 10:23 | PDOC ---
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, check A1c, consult wound care morbid obesity, BMI 47 CHF, acute on chronic systolic, on Demedex outpatient, consult CV team, but this may be edema from her sepsis and her leg infection LE edema, consult lymphedema OT team SEPSIS admit DC IV vancomycin due to mild CINTHYA .Start daptomycin Continue meropenem and micafungin 38 min pt exam, chart review, > 50% of time spent with exam, chart review, pt care coordination Justicifation of Admission Dx: Justicifation of Admission Dx: Justifications for Admission: Justification of Admission Dx: Yes Cellulitis: Cellulitis (in Dm2, open wounds) History of Present Illness History of Present Illness History of Present Illness History of Present Illness Pt transferred from [facility] for worsening med problems. LE wounds that are not healing, wounds have looked worse and are now weeping. She has been on IV vanco and IV merrem outpatient for 3 weeks for these wounds and seeing Dr. Gregorio and she reports they are not improved. She also has new weigth gain, 5 lbs yesterday and 20lbs weight gain in a week. She has been taking her Torsemide and she complains about needing to use the bathroom every hour. She has marked hesitancy when she micturates, and often starts and stops, she has not seen a urologist. some weakness and leg pain, but that is standard she was admitted here to the COVID unit due to fever, SIRS pos, seen by me in full PPE Past Medical History Cardiovascular: CHF Pulmonary: No pertinent hx GI: No pertinent hx Musculoskeletal: low back pain Infectious disease: No pertinent hx Endocrine: Diabetes, Hypothyroidism Past Surgical History Past Surgical History: No pertinent history Family History Family History: Diabetes Social History Smoke: No ALCOHOL: none Drugs: None Vitals Vitals Vital Signs Date Time Temp Pulse Resp B/P (MAP) Pulse Ox O2 Delivery O2 Flow Rate FiO2 04/21/20 07:00 98.4 78 20 152/85 (107) 95 Nasal Cannula 2.0 98.4 Physical Exam General: Alert, Oriented X3, Cooperative, No acute distress Heart: Regular rate (SR), Other (distant heart sounds) Lungs: Crackles (bases ) Abdomen: Soft, Other (obese) Extremities: Other (erythema to bilateral LE and swelling) Skin: Other (marked LE wounds, weeping, other skin smooth and dry) Labs LABS Laboratory Tests Test 04/20/20 11:10 04/20/20 12:15 04/20/20 13:46 04/20/20 16:28 Glucose (Fingerstick) 157 mg/dL (70-99) 164 mg/dL (70-99) White Blood Count 5.3 x10^3/uL (4.0-11.0) Red Blood Count 3.44 x10^6/uL (3.50-5.40) Hemoglobin 9.4 g/dL (12.0-15.5) Hematocrit 29.4 % (36.0-47.0) Mean Corpuscular Volume 85 fL (79-100) Mean Corpuscular Hemoglobin 27 pg (25-35) Mean Corpuscular Hemoglobin Concent 32 g/dL (31-37) Red Cell Distribution Width 20.5 % (11.5-14.5) Platelet Count 179 x10^3/uL (140-400) Neutrophils (%) (Auto) 60 % (31-73) Lymphocytes (%) (Auto) 21 % (24-48) Monocytes (%) (Auto) 14 % (0-9) Eosinophils (%) (Auto) 4 % (0-3) Basophils (%) (Auto) 1 % (0-3) Neutrophils # (Auto) 3.2 x10^3/uL (1.8-7.7) Lymphocytes # (Auto) 1.1 x10^3/uL (1.0-4.8) Monocytes # (Auto) 0.7 x10^3/uL (0.0-1.1) Eosinophils # (Auto) 0.2 x10^3/uL (0.0-0.7) Basophils # (Auto) 0.0 x10^3/uL (0.0-0.2) Platelet Estimate Adequate (ADEQUATE) Basophilic Stippling Present Anisocytosis Slight Sodium Level 141 mmol/L (136-145) Potassium Level 4.1 mmol/L (3.5-5.1) Chloride Level 102 mmol/L (98-107) Carbon Dioxide Level 37 mmol/L (21-32) Anion Gap 2 (6-14) Blood Urea Nitrogen 51 mg/dL (7-20) Creatinine 1.3 mg/dL (0.6-1.0) Estimated GFR (Cockcroft-Gault) 39.7 BUN/Creatinine Ratio 39 (6-20) Glucose Level 150 mg/dL (70-99) Hemoglobin A1c 6.5 % (4.8-5.6) Calcium Level 8.8 mg/dL (8.5-10.1) Magnesium Level 2.3 mg/dL (1.8-2.4) Total Bilirubin 0.3 mg/dL (0.2-1.0) Aspartate Amino Transf (AST/SGOT) 30 U/L (15-37) Alanine Aminotransferase (ALT/SGPT) 35 U/L (14-59) Alkaline Phosphatase 89 U/L (46-116) TE-Nxd-Y-Type Natriuretic Peptide 1374 pg/mL (0-449) Total Protein 6.7 g/dL (6.4-8.2) Albumin 2.3 g/dL (3.4-5.0) Albumin/Globulin Ratio 0.5 (1.0-1.7) Thyroid Stimulating Hormone (TSH) 3.071 uIU/mL (0.358-3.74) Vancomycin Level Trough 12.9 mcg/mL (10.0-20.0) Vancomycin Last Dose Date 04/19/20 Vancomycin Last Dose Time 0900 Urine Collection Type Unknown Urine Color Yellow Urine Clarity Clear Urine pH 6.0 (<5.0-8.0) Urine Specific [place] 1.020 (1.000-1.030) Urine Protein 100 mg/dL (NEG-TRACE) Urine Glucose (UA) Negative mg/dL (NEG) Urine Ketones (Stick) Negative mg/dL (NEG) Urine Blood Negative (NEG) Urine Nitrite Negative (NEG) Urine Bilirubin Negative (NEG) Urine Urobilinogen Dipstick 0.2 mg/dL (0.2 mg/dL) Urine Leukocyte Esterase Negative (NEG) Urine RBC 1-2 /HPF (0-2) Urine WBC 0 /HPF (0-4) Urine Squamous Epithelial Cells Few /LPF Urine Bacteria 0 /HPF (0-FEW) Urine Hyaline Casts Few /HPF Urine Mucus Slight /LPF Test 04/20/20 21:13 04/21/20 08:17 04/21/20 08:32 04/21/20 09:29 Glucose (Fingerstick) 230 mg/dL (70-99) 59 mg/dL (70-99) 145 mg/dL (70-99) Sodium Level 144 mmol/L (136-145) Potassium Level 3.6 mmol/L (3.5-5.1) Chloride Level 104 mmol/L (98-107) Carbon Dioxide Level 37 mmol/L (21-32) Anion Gap 3 (6-14) Blood Urea Nitrogen 41 mg/dL (7-20) Creatinine 1.4 mg/dL (0.6-1.0) Estimated GFR (Cockcroft-Gault) 36.5 Glucose Level 63 mg/dL (70-99) Calcium Level 8.1 mg/dL (8.5-10.1) Magnesium Level 2.2 mg/dL (1.8-2.4) Comment Review of Relevant I have reviewed the following items giancarlo (where applicable) has been applied. Labs Laboratory Tests Test 04/20/20 07:55 04/20/20 11:10 04/20/20 12:15 04/20/20 13:46 Glucose (Fingerstick) 120 mg/dL (70-99) 157 mg/dL (70-99) White Blood Count 5.3 x10^3/uL (4.0-11.0) Red Blood Count 3.44 x10^6/uL (3.50-5.40) Hemoglobin 9.4 g/dL (12.0-15.5) Hematocrit 29.4 % (36.0-47.0) Mean Corpuscular Volume 85 fL (79-100) Mean Corpuscular Hemoglobin 27 pg (25-35) Mean Corpuscular Hemoglobin Concent 32 g/dL (31-37) Red Cell Distribution Width 20.5 % (11.5-14.5) Platelet Count 179 x10^3/uL (140-400) Neutrophils (%) (Auto) 60 % (31-73) Lymphocytes (%) (Auto) 21 % (24-48) Monocytes (%) (Auto) 14 % (0-9) Eosinophils (%) (Auto) 4 % (0-3) Basophils (%) (Auto) 1 % (0-3) Neutrophils # (Auto) 3.2 x10^3/uL (1.8-7.7) Lymphocytes # (Auto) 1.1 x10^3/uL (1.0-4.8) Monocytes # (Auto) 0.7 x10^3/uL (0.0-1.1) Eosinophils # (Auto) 0.2 x10^3/uL (0.0-0.7) Basophils # (Auto) 0.0 x10^3/uL (0.0-0.2) Platelet Estimate Adequate (ADEQUATE) Basophilic Stippling Present Anisocytosis Slight Sodium Level 141 mmol/L (136-145) Potassium Level 4.1 mmol/L (3.5-5.1) Chloride Level 102 mmol/L (98-107) Carbon Dioxide Level 37 mmol/L (21-32) Anion Gap 2 (6-14) Blood Urea Nitrogen 51 mg/dL (7-20) Creatinine 1.3 mg/dL (0.6-1.0) Estimated GFR (Cockcroft-Gault) 39.7 BUN/Creatinine Ratio 39 (6-20) Glucose Level 150 mg/dL (70-99) Hemoglobin A1c 6.5 % (4.8-5.6) Calcium Level 8.8 mg/dL (8.5-10.1) Magnesium Level 2.3 mg/dL (1.8-2.4) Total Bilirubin 0.3 mg/dL (0.2-1.0) Aspartate Amino Transf (AST/SGOT) 30 U/L (15-37) Alanine Aminotransferase (ALT/SGPT) 35 U/L (14-59) Alkaline Phosphatase 89 U/L (46-116) RF-Nro-I-Type Natriuretic Peptide 1374 pg/mL (0-449) Total Protein 6.7 g/dL (6.4-8.2) Albumin 2.3 g/dL (3.4-5.0) Albumin/Globulin Ratio 0.5 (1.0-1.7) Thyroid Stimulating Hormone (TSH) 3.071 uIU/mL (0.358-3.74) Vancomycin Level Trough 12.9 mcg/mL (10.0-20.0) Vancomycin Last Dose Date 04/19/20 Vancomycin Last Dose Time 0900 Urine Collection Type Unknown Urine Color Yellow Urine Clarity Clear Urine pH 6.0 (<5.0-8.0) Urine Specific [place] 1.020 (1.000-1.030) Urine Protein 100 mg/dL (NEG-TRACE) Urine Glucose (UA) Negative mg/dL (NEG) Urine Ketones (Stick) Negative mg/dL (NEG) Urine Blood Negative (NEG) Urine Nitrite Negative (NEG) Urine Bilirubin Negative (NEG) Urine Urobilinogen Dipstick 0.2 mg/dL (0.2 mg/dL) Urine Leukocyte Esterase Negative (NEG) Urine RBC 1-2 /HPF (0-2) Urine WBC 0 /HPF (0-4) Urine Squamous Epithelial Cells Few /LPF Urine Bacteria 0 /HPF (0-FEW) Urine Hyaline Casts Few /HPF Urine Mucus Slight /LPF Test 04/20/20 16:28 04/20/20 21:13 04/21/20 08:17 04/21/20 08:32 Glucose (Fingerstick) 164 mg/dL (70-99) 230 mg/dL (70-99) 59 mg/dL (70-99) Sodium Level 144 mmol/L (136-145) Potassium Level 3.6 mmol/L (3.5-5.1) Chloride Level 104 mmol/L (98-107) Carbon Dioxide Level 37 mmol/L (21-32) Anion Gap 3 (6-14) Blood Urea Nitrogen 41 mg/dL (7-20) Creatinine 1.4 mg/dL (0.6-1.0) Estimated GFR (Cockcroft-Gault) 36.5 Glucose Level 63 mg/dL (70-99) Calcium Level 8.1 mg/dL (8.5-10.1) Magnesium Level 2.2 mg/dL (1.8-2.4) Test 04/21/20 09:29 Glucose (Fingerstick) 145 mg/dL (70-99) Laboratory Tests Test 04/20/20 11:10 04/20/20 12:15 04/20/20 13:46 04/20/20 16:28 Glucose (Fingerstick) 157 mg/dL (70-99) 164 mg/dL (70-99) White Blood Count 5.3 x10^3/uL (4.0-11.0) Red Blood Count 3.44 x10^6/uL (3.50-5.40) Hemoglobin 9.4 g/dL (12.0-15.5) Hematocrit 29.4 % (36.0-47.0) Mean Corpuscular Volume 85 fL (79-100) Mean Corpuscular Hemoglobin 27 pg (25-35) Mean Corpuscular Hemoglobin Concent 32 g/dL (31-37) Red Cell Distribution Width 20.5 % (11.5-14.5) Platelet Count 179 x10^3/uL (140-400) Neutrophils (%) (Auto) 60 % (31-73) Lymphocytes (%) (Auto) 21 % (24-48) Monocytes (%) (Auto) 14 % (0-9) Eosinophils (%) (Auto) 4 % (0-3) Basophils (%) (Auto) 1 % (0-3) Neutrophils # (Auto) 3.2 x10^3/uL (1.8-7.7) Lymphocytes # (Auto) 1.1 x10^3/uL (1.0-4.8) Monocytes # (Auto) 0.7 x10^3/uL (0.0-1.1) Eosinophils # (Auto) 0.2 x10^3/uL (0.0-0.7) Basophils # (Auto) 0.0 x10^3/uL (0.0-0.2) Platelet Estimate Adequate (ADEQUATE) Basophilic Stippling Present Anisocytosis Slight Sodium Level 141 mmol/L (136-145) Potassium Level 4.1 mmol/L (3.5-5.1) Chloride Level 102 mmol/L (98-107) Carbon Dioxide Level 37 mmol/L (21-32) Anion Gap 2 (6-14) Blood Urea Nitrogen 51 mg/dL (7-20) Creatinine 1.3 mg/dL (0.6-1.0) Estimated GFR (Cockcroft-Gault) 39.7 BUN/Creatinine Ratio 39 (6-20) Glucose Level 150 mg/dL (70-99) Hemoglobin A1c 6.5 % (4.8-5.6) Calcium Level 8.8 mg/dL (8.5-10.1) Magnesium Level 2.3 mg/dL (1.8-2.4) Total Bilirubin 0.3 mg/dL (0.2-1.0) Aspartate Amino Transf (AST/SGOT) 30 U/L (15-37) Alanine Aminotransferase (ALT/SGPT) 35 U/L (14-59) Alkaline Phosphatase 89 U/L (46-116) PS-Pne-I-Type Natriuretic Peptide 1374 pg/mL (0-449) Total Protein 6.7 g/dL (6.4-8.2) Albumin 2.3 g/dL (3.4-5.0) Albumin/Globulin Ratio 0.5 (1.0-1.7) Thyroid Stimulating Hormone (TSH) 3.071 uIU/mL (0.358-3.74) Vancomycin Level Trough 12.9 mcg/mL (10.0-20.0) Vancomycin Last Dose Date 04/19/20 Vancomycin Last Dose Time 0900 Urine Collection Type Unknown Urine Color Yellow Urine Clarity Clear Urine pH 6.0 (<5.0-8.0) Urine Specific [place] 1.020 (1.000-1.030) Urine Protein 100 mg/dL (NEG-TRACE) Urine Glucose (UA) Negative mg/dL (NEG) Urine Ketones (Stick) Negative mg/dL (NEG) Urine Blood Negative (NEG) Urine Nitrite Negative (NEG) Urine Bilirubin Negative (NEG) Urine Urobilinogen Dipstick 0.2 mg/dL (0.2 mg/dL) Urine Leukocyte Esterase Negative (NEG) Urine RBC 1-2 /HPF (0-2) Urine WBC 0 /HPF (0-4) Urine Squamous Epithelial Cells Few /LPF Urine Bacteria 0 /HPF (0-FEW) Urine Hyaline Casts Few /HPF Urine Mucus Slight /LPF Test 04/20/20 21:13 04/21/20 08:17 04/21/20 08:32 04/21/20 09:29 Glucose (Fingerstick) 230 mg/dL (70-99) 59 mg/dL (70-99) 145 mg/dL (70-99) Sodium Level 144 mmol/L (136-145) Potassium Level 3.6 mmol/L (3.5-5.1) Chloride Level 104 mmol/L (98-107) Carbon Dioxide Level 37 mmol/L (21-32) Anion Gap 3 (6-14) Blood Urea Nitrogen 41 mg/dL (7-20) Creatinine 1.4 mg/dL (0.6-1.0) Estimated GFR (Cockcroft-Gault) 36.5 Glucose Level 63 mg/dL (70-99) Calcium Level 8.1 mg/dL (8.5-10.1) Magnesium Level 2.2 mg/dL (1.8-2.4) Medications Current Medications Oxycodone/ Acetaminophen (Percocet 5/325) 1 tab PRN Q4HRS PRN PO PAIN Last administered on 04/20/20 21:02; Start 04/20/20 at 03:15 Vancomycin HCl (Vanco Per Pharmacy) 1 each PRN DAILY PRN MC SEE COMMENTS Last administered on 04/20/20 13:36; Start 04/20/20 at 09:30 Meropenem 500 mg/ Sodium Chloride 50 ml @ 100 mls/hr Q8HRS IV Last administered on 04/21/20 06:27; Start 04/20/20 at 14:00 Amlodipine Besylate (Norvasc) 5 mg DAILY PO Last administered on 04/20/20 10:46; Start 04/20/20 at 10:00 Aspirin (Aspirin Chewable) 81 mg DAILY PO Last administered on 04/20/20 10:46; Start 04/20/20 at 10:00 Fentanyl (Duragesic 25mcg/ Hr Patch) 1 patch Q3DAYS TD Last administered on 04/20/20 10:46; Start 04/20/20 at 10:00 Gabapentin (Neurontin) 300 mg HS PO Last administered on 04/20/20 21:02; Start 04/20/20 at 21:00 Levothyroxine Sodium (Synthroid) 75 mcg DAILYAC PO Last administered on 04/21/20 06:27; Start 04/21/20 at 07:30 Nortriptyline HCl (Pamelor) 10 mg QHS PO Last administered on 04/20/20 21:01; Start 04/20/20 at 21:00 Pantoprazole Sodium (Protonix) 40 mg DAILYAC PO Last administered on 04/21/20 06:27; Start 04/20/20 at 10:00 Ropinirole HCl (Requip) 0.25 mg TID PO Last administered on 04/20/20 21:01; Start 04/20/20 at 14:00 Torsemide (Demadex) 20 mg BID PO Last administered on 04/20/20at 21:02; Start at 21:00; Stop 04/21/20 at 08:33; Status DC Insulin Glargine (Lantus Syringe) 25 unit BID SQ Last administered on 04/20/20at 21:33; Start 04/20/20 at 11:00 Lactobacillus Rhamnosus (Culturelle) 1 cap DAILY PO Last administered on 04/20/20at 10:47; Start 04/20/20 at 10:00 Multivitamins (Thera M Plus) 1 tab QMWF PO ; Start 04/21/20 at 16:00 Zinc Sulfate (Orazinc) 220 mg DAILY PO ; Start 04/21/20 at 09:00 Ascorbic Acid (Vitamin C) 500 mg DAILY PO Last administered on 04/20/20at 10:46; Start 04/20/20 at 10:00 Vancomycin HCl 2 gm/Sodium Chloride 500 ml @ 250 mls/hr 1X ONCE IV ; Start 04/20/20 at 10:00; Stop 04/20/20 at 11:59; Status Cancel Enoxaparin Sodium (Lovenox Per Pharmacy Prophylaxis Dosing) 1 each PRN DAILY PRN MC SEE COMMENTS; Start 04/20/20 at 09:45 Enoxaparin Sodium (Lovenox 40mg Syringe) 40 mg BID SQ Last administered on 04/20/20at 21:01; Start 04/20/20 at 10:00 Furosemide (Lasix) 40 mg 1X ONCE IVP Last administered on 04/20/20at 13:39; Start 04/20/20 at 12:15; Stop 04/20/20 at 12:16; Status DC Vancomycin HCl 1.25 gm/Sodium Chloride 250 ml @ 167 mls/hr Q24H IV Last administered on 04/20/20at 18:07; Start 04/20/20 at 15:00 Vancomycin HCl (Vancomycin Trough Level) 1 each 1X ONCE MC ; Start 04/22/20 at 14:30; Stop 04/22/20 at 14:31 Micafungin Sodium 100 mg/Dextrose 100 ml @ 100 mls/hr Q24H IV Last administered on 04/20/20at 15:14; Start 04/20/20 at 15:00 Nystatin (Nystop) 1 jaime BID TP Last administered on 04/20/20at 21:00; Start 04/20/20 at 21:00 Dextrose (Dextrose 50%-Water Syringe) 12.5 gm PRN Q15MIN PRN IV SEE COMMENTS; Start 04/20/20 at 20:15 Torsemide (Demadex) 20 mg [id number] PO ; Start 04/21/20 at 16:00 Active Scripts Active Reported Lantus Solostar (Insulin Glargine,Hum.rec.anlog) 100 Unit/1 Ml Insuln.pen 25 Unit SQ BID Gabapentin (Gabapentin) 300 Mg Capsule 300 Mg PO HS Novolog (Insulin Aspart) 100 Unit/1 Ml Vial 100 Unit SQ TIDAC Torsemide 20 Mg Tablet 1 Tab PO BID Nortriptyline Hcl 10 Mg Capsule 1 Cap PO QHS Amlodipine Besylate 5 Mg Tablet 5 Mg PO DAILY FENTANYL 25mcg/hr (Fentanyl) 1 Each Patch.td72 1 Patch TP Q3DAYS Percocet 5-325 Mg Tablet (Oxycodone/Acetaminophen) 1 Each Tablet 1 Tab PO PRN Q4HRS PRN Glimepiride 4 Mg Tablet 1 Tab PO DAILY Multivitamins (Multivitamin) 1 Each Tablet 1 Tab PO MWF Aspirin 81 Mg Tab.chew 1 Tab PO DAILY Ropinirole Hcl 0.25 Mg Tablet 0.25 Mg PO TID Levothyroxine Sodium 75 Mcg Tablet 75 Mcg PO DAILYAC Magnesium Oxide 400 Mg Tablet 1 Tab PO BID Pantoprazole Sodium (Pantoprazole Sodium) 40 Mg Tablet.dr 40 Mg PO DAILYAC Acidophilus (Lactobacillus Acidophilus) 1 Each Capsule 1 Cap PO DAILY 14 Days Klor-Con 10 (Potassium Chloride) 10 Meq Tablet.er 1 Tab PO DAILY 30 Days Vitals/I & O Vital Sign - Last 24 Hours 04/20/20 04/20/20 04/20/20 04/20/20 10:43 10:46 15:00 19:00 Temp 97.7 97.7 97.9 97.7 97.7 97.9 Pulse 88 85 84 86 Resp 18 18 18 B/P (MAP) 120/59 (79) 118/62 (80) 123/53 (76) Pulse Ox 94 95 96 O2 Delivery Nasal Cannula Nasal Cannula Nasal Cannula O2 Flow Rate 2.0 2.0 2.0 04/20/20 04/20/20 04/20/20 04/20/20 19:45 21:02 22:02 23:00 Temp 97.9 97.9 Pulse 86 Resp 18 B/P (MAP) 123/53 (76) Pulse Ox 95 96 O2 Delivery Nasal Cannula Nasal Cannula Room Air Nasal Cannula O2 Flow Rate 2.0 2.0 2.0 2.0 04/21/20 04/21/20 03:00 07:00 Temp 97.9 98.4 97.9 98.4 Pulse 73 78 Resp 18 20 B/P (MAP) 134/63 (86) 152/85 (107) Pulse Ox 95 95 O2 Delivery Nasal Cannula Nasal Cannula O2 Flow Rate 2.0 2.0 Intake and Output 04/20/20 04/20/20 04/21/20 15:00 23:00 07:00 Intake Total 600 ml 850 ml 100 ml Output Total 400 ml 700 ml Balance 200 ml 150 ml 100 ml Justicifation of Admission Dx: Justifications for Admission: Justification of Admission Dx: Yes Cellulitis: Cellulitis (in Dm2, open wounds) EVITA BELL MD Apr 21, 2020 10:23
--- NOTE | 2020-04-21 10:57 | PDOC ---
Infectious Disease Note Subjective: Subjective Patient says his legs feel the same Denies fever, nausea, vomiting, shortness of breath, diarrhea, abdominal pain, rash Otherwise as above Vital Signs: Vital Signs Vital Signs Date Time Temp Pulse Resp B/P (MAP) Pulse Ox O2 Delivery O2 Flow Rate FiO2 04/21/20 07:00 98.4 78 20 152/85 (107) 95 Nasal Cannula 2.0 98.4 Physical Exam: PHYSICAL EXAM GENERAL: Alert, oriented x 3 female, lying in bed comfortably, in no acute distress. HEENT: Normocephalic, atraumatic, anicteric. No thrush. NECK: Supple, no JVD. LUNGS: Clear bilaterally. No wheezing. Decreased breath sounds at the bases. HEART: S1, S2, no murmurs. ABDOMEN: Soft, obese. Bowel sounds present, nontender, nondistended. EXTREMITIES: Bilateral lower extremity erythema, swelling. Wound dressings taken down. The patient has multiple wounds over the left lower extremity. They appear clean, has wound treatment application, right lower extremity wound appears to be stable. There is a small area of abrasion just above the dressing, which appears to be from trauma, but no purulence noted. Yeast present. Onychomycosis present. Dermatitis present. Left upper extremity PICC line is clean. DERMATOLOGIC: Warm, dry. No generalized rash. Does have fungal dermatitis below both breasts, groin and lower extremity as above. NEUROLOGIC: Alert and oriented x 3, grossly nonfocal. PSYCHIATRIC: Cooperative, appropriate mood and affect. Medications: Inpatient Meds: Current Medications Medications (Trade) Dose Ordered Sig/[facility] Start Time Stop Time Status Last Admin Dose Admin Amlodipine Besylate (Norvasc) 5 mg DAILY 04/20/20 10:00 04/20/20 10:46 5 MG Ascorbic Acid (Vitamin C) 500 mg DAILY 04/20/20 10:00 04/20/20 10:46 500 MG Aspirin (Aspirin Chewable) 81 mg DAILY 04/20/20 10:00 04/20/20 10:46 81 MG Dextrose (Dextrose 50%-Water Syringe) 12.5 gm PRN Q15MIN PRN 04/20/20 20:15 Enoxaparin Sodium (Lovenox 40mg Syringe) 40 mg BID 04/20/20 10:00 04/20/20 21:01 40 MG Enoxaparin Sodium (Lovenox Per Pharmacy Prophylaxis Dosing) 1 each PRN DAILY PRN 04/20/20 09:45 Fentanyl (Duragesic 25mcg/ Hr Patch) 1 patch Q3DAYS 04/20/20 10:00 04/20/20 10:46 1 PATCH Furosemide (Lasix) 40 mg 1X ONCE 04/20/20 12:15 04/20/20 12:16 DC 04/20/20 13:39 40 MG Gabapentin (Neurontin) 300 mg HS 04/20/20 21:00 04/20/20 21:02 300 MG Insulin Glargine (Lantus Syringe) 25 unit BID 04/20/20 11:00 04/20/20 21:33 25 UNIT Lactobacillus Rhamnosus (Culturelle) 1 cap DAILY 04/20/20 10:00 04/20/20 10:47 1 CAP Levothyroxine Sodium (Synthroid) 75 mcg DAILYAC 04/21/20 07:30 04/21/20 06:27 75 MCG Meropenem 500 mg/ Sodium Chloride 50 ml @ 100 mls/hr Q8HRS 04/20/20 14:00 04/21/20 06:27 100 MLS/HR Micafungin Sodium 100 mg/Dextrose 100 ml @ 100 mls/hr Q24H 04/20/20 15:00 04/20/20 15:14 100 MLS/HR Multivitamins (Thera M Plus) 1 tab QMWF 04/21/20 16:00 Nortriptyline HCl (Pamelor) 10 mg QHS 04/20/20 21:00 04/20/20 21:01 10 MG Nystatin (Nystop) 1 jaime BID 04/20/20 21:00 04/20/20 21:00 1 JAIME Oxycodone/ Acetaminophen (Percocet 5/325) 1 tab PRN Q4HRS PRN 04/20/20 03:15 04/20/20 21:02 1 TAB Pantoprazole Sodium (Protonix) 40 mg DAILYAC 04/20/20 10:00 04/21/20 06:27 40 MG Ropinirole HCl (Requip) 0.25 mg TID 04/20/20 14:00 04/20/20 21:01 0.25 MG Torsemide (Demadex) 20 mg [id number] 8/12/20 16:00 Vancomycin HCl (Vanco Per Pharmacy) 1 each PRN DAILY PRN 04/20/20 09:30 04/20/20 13:36 1 EACH Vancomycin HCl (Vancomycin Trough Level) 1 each 1X ONCE 04/22/20 14:30 04/22/20 14:31 Vancomycin HCl 1.25 gm/Sodium Chloride 250 ml @ 167 mls/hr Q24H 04/20/20 15:00 04/20/20 18:07 167 MLS/HR Vancomycin HCl 2 gm/Sodium Chloride 500 ml @ 250 mls/hr 1X ONCE 04/20/20 10:00 04/20/20 11:59 Cancel Zinc Sulfate (Orazinc) 220 mg DAILY 04/21/20 09:00 Labs: Lab Laboratory Tests Test 04/20/20 11:10 04/20/20 12:15 04/20/20 13:46 04/20/20 16:28 Glucose (Fingerstick) 157 mg/dL (70-99) 164 mg/dL (70-99) White Blood Count 5.3 x10^3/uL (4.0-11.0) Red Blood Count 3.44 x10^6/uL (3.50-5.40) Hemoglobin 9.4 g/dL (12.0-15.5) Hematocrit 29.4 % (36.0-47.0) Mean Corpuscular Volume 85 fL (79-100) Mean Corpuscular Hemoglobin 27 pg (25-35) Mean Corpuscular Hemoglobin Concent 32 g/dL (31-37) Red Cell Distribution Width 20.5 % (11.5-14.5) Platelet Count 179 x10^3/uL (140-400) Neutrophils (%) (Auto) 60 % (31-73) Lymphocytes (%) (Auto) 21 % (24-48) Monocytes (%) (Auto) 14 % (0-9) Eosinophils (%) (Auto) 4 % (0-3) Basophils (%) (Auto) 1 % (0-3) Neutrophils # (Auto) 3.2 x10^3/uL (1.8-7.7) Lymphocytes # (Auto) 1.1 x10^3/uL (1.0-4.8) Monocytes # (Auto) 0.7 x10^3/uL (0.0-1.1) Eosinophils # (Auto) 0.2 x10^3/uL (0.0-0.7) Basophils # (Auto) 0.0 x10^3/uL (0.0-0.2) Platelet Estimate Adequate (ADEQUATE) Basophilic Stippling Present Anisocytosis Slight Sodium Level 141 mmol/L (136-145) Potassium Level 4.1 mmol/L (3.5-5.1) Chloride Level 102 mmol/L (98-107) Carbon Dioxide Level 37 mmol/L (21-32) Anion Gap 2 (6-14) Blood Urea Nitrogen 51 mg/dL (7-20) Creatinine 1.3 mg/dL (0.6-1.0) Estimated GFR (Cockcroft-Gault) 39.7 BUN/Creatinine Ratio 39 (6-20) Glucose Level 150 mg/dL (70-99) Hemoglobin A1c 6.5 % (4.8-5.6) Calcium Level 8.8 mg/dL (8.5-10.1) Magnesium Level 2.3 mg/dL (1.8-2.4) Total Bilirubin 0.3 mg/dL (0.2-1.0) Aspartate Amino Transf (AST/SGOT) 30 U/L (15-37) Alanine Aminotransferase (ALT/SGPT) 35 U/L (14-59) Alkaline Phosphatase 89 U/L (46-116) [id number]-[id number]-Type Natriuretic Peptide 1374 pg/mL (0-449) Total Protein 6.7 g/dL (6.4-8.2) Albumin 2.3 g/dL (3.4-5.0) Albumin/Globulin Ratio 0.5 (1.0-1.7) Thyroid Stimulating Hormone (TSH) 3.071 uIU/mL (0.358-3.74) Vancomycin Level Trough 12.9 mcg/mL (10.0-20.0) Vancomycin Last Dose Date 04/19/20 Vancomycin Last Dose Time 0900 Urine Collection Type Unknown Urine Color Yellow Urine Clarity Clear Urine pH 6.0 (<5.0-8.0) Urine Specific [place] 1.020 (1.000-1.030) Urine Protein 100 mg/dL (NEG-TRACE) Urine Glucose (UA) Negative mg/dL (NEG) Urine Ketones (Stick) Negative mg/dL (NEG) Urine Blood Negative (NEG) Urine Nitrite Negative (NEG) Urine Bilirubin Negative (NEG) Urine Urobilinogen Dipstick 0.2 mg/dL (0.2 mg/dL) Urine Leukocyte Esterase Negative (NEG) Urine RBC 1-2 /HPF (0-2) Urine WBC 0 /HPF (0-4) Urine Squamous Epithelial Cells Few /LPF Urine Bacteria 0 /HPF (0-FEW) Urine Hyaline Casts Few /HPF Urine Mucus Slight /LPF Test 04/20/20 21:13 04/21/20 08:17 04/21/20 08:32 04/21/20 09:29 Glucose (Fingerstick) 230 mg/dL (70-99) 59 mg/dL (70-99) 145 mg/dL (70-99) Sodium Level 144 mmol/L (136-145) Potassium Level 3.6 mmol/L (3.5-5.1) Chloride Level 104 mmol/L (98-107) Carbon Dioxide Level 37 mmol/L (21-32) Anion Gap 3 (6-14) Blood Urea Nitrogen 41 mg/dL (7-20) Creatinine 1.4 mg/dL (0.6-1.0) Estimated GFR (Cockcroft-Gault) 36.5 Glucose Level 63 mg/dL (70-99) Calcium Level 8.1 mg/dL (8.5-10.1) Magnesium Level 2.2 mg/dL (1.8-2.4) Objective: Assessment: 1. Chronic bilateral lower extremity wounds for 3 years with recent infection diagnosed at [facility], status post debridement at outside hospital about 3-4 weeks ago, on IV vancomycin and meropenem bobby SPIVEY MD, Dr. Fuller along with wound care treatment. 2. Dyspnea with febrile illness, 3. History of congestive heart failure. 4. Chronic venous insufficiency with chronic lymphedema. 5. Anemia. 6. Fungal dermatitis. 7. Obesity. 8. Peripheral neuropathy. 9. Diabetes. 10. Hypothyroidism. 11. COVID suspect, results are pending at this time. Plan: Plan of Care DC IV vancomycin due to mild CINTHYA .Start daptomycin Continue meropenem and micafungin Continue wound care per wound team. Await outside ID consultation and progress notes, micro lab from [facility] Elevate both lower extremities. Continue PICC line care. Follow up labs and cultures. Continue supportive care. Discussed with nursing staff CRAWFORD,ARUNDHATI S MD Apr 21, 2020 10:57
[2020-04-21 11:30] VITALS: BP 144/61
[2020-04-21] MEDS: amLODIPine BESYLATE 5 MG TABLET PO SCH (11:54)
[2020-04-21] MEDS: ZINC SULFATE 220 MG CAPSULE. PO SCH (11:54)
[2020-04-21] MEDS: LACTOBACILLUS RHAMNOSUS GG 1 CAPSULE. PO SCH (11:54)
[2020-04-21] MEDS: ASCORBIC ACID 500 MG TABLET PO SCH (11:54)
[2020-04-21] MEDS: rOPINIRole 0.25 MG TABLET. PO SCH ×3 (11:55→20:34)
[2020-04-21] MEDS: ENOXAPARIN 40 MG/0.4 ML SYRINGE. SQ SCH ×2 (11:55→20:35)
[2020-04-21] MEDS: ASPIRIN CHEWABLE 81 MG TABLET. PO SCH (11:56)
[2020-04-21] MEDS: NYSTATIN TOPICAL POWDER 15GM BOTTLE. TP SCH ×2 (11:56→20:35)
[2020-04-21] MEDS: oxyCODONE/APAP 5/325 1 TAB TABLET PO PRN ×3 (11:57→20:37)
[2020-04-21 15:00] VITALS: BP 128/63
--- NOTE | 2020-04-21 15:01 | PDOC ---
CARDIO Progress Notes Date and Time Date of Service 04/21/2020 Time of Evaluation 0940 Subjective Subjective: No Chest Pain, No shortness of breath, No Palpitations Vitals Vitals Vital Signs Date Time Temp Pulse Resp B/P (MAP) Pulse Ox O2 Delivery O2 Flow Rate FiO2 04/21/20 12:57 95 Nasal Cannula 2.0 04/21/20 11:54 78 152/85 04/21/20 11:30 97.8 16 97.8 Weight Weight [ ] Input and Output Intake and Output Intake and Output 04/21/20 07:00 Intake Total 1550 ml Output Total 1100 ml Balance 450 ml Intake Oral 1500 ml IV Total 50 ml Output Urine Total 1100 ml # Voids 1 Laboratory Labs Laboratory Tests Test 04/20/20 16:28 04/20/20 21:13 04/21/20 08:17 04/21/20 08:32 Glucose (Fingerstick) 164 mg/dL (70-99) 230 mg/dL (70-99) 59 mg/dL (70-99) Sodium Level 144 mmol/L (136-145) Potassium Level 3.6 mmol/L (3.5-5.1) Chloride Level 104 mmol/L (98-107) Carbon Dioxide Level 37 mmol/L (21-32) Anion Gap 3 (6-14) Blood Urea Nitrogen 41 mg/dL (7-20) Creatinine 1.4 mg/dL (0.6-1.0) Estimated GFR (Cockcroft-Gault) 36.5 Glucose Level 63 mg/dL (70-99) Calcium Level 8.1 mg/dL (8.5-10.1) Magnesium Level 2.2 mg/dL (1.8-2.4) Test 04/21/20 09:29 04/21/20 11:43 Glucose (Fingerstick) 145 mg/dL (70-99) 171 mg/dL (70-99) Physical Exam HEENT: Neck Supple W Full Motion Chest: Symmetric LUNGS: Other (diminished) Heart: RRR (not on tele), other (edema) Abdomen: Other (obese) Extremities: Other (LE cellulitis) Neurology: alert, oriented, follow commands Other Exams Discussed 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 LE cellulitis: on meropenem and vancomycin IV at home 2. Acute on chronic diastolic CHF: SOA better currently. No ILD per pulmonary 3. Morbid obesity 4. HTN: controlled 5. HLP 6. Hypothyroidism 7. Hx of LLE moderate PAD and venous insufficienc: past ablation 8. SUNDAR: uses CPAP 9. CINTHYA vs CKD: Cr better 10. Hx of pyoderma gangrenosum: treated with cyclosporine/prednisone in the past 12. PUI Recommendations 1. Lasix IV x1 today and restart home torsemide tomorrow. 2. Request [facility] records. Will obtain TTE if negative for covid. 3. Replace K and Mg as warranted. Justicifation of Admission Dx: Justifications for Admission: Justification of Admission Dx: Yes Cellulitis: Cellulitis (in Dm2, open wounds) BISI HARRISON INSURANCE AGENT Apr 21, 2020 15:00
[2020-04-21] MEDS ORDERED: TORSEMIDE 20 MG TABLET. PO SCH (16:00)
[2020-04-21] MEDS ORDERED: FUROSEMIDE 40 MG/4 ML VIAL. IVP ONE (16:00)
[2020-04-21] MEDS: MICAFUNGIN 100 MG in IV DEXTROSE 5% 100ML 100 ML IV SCH (16:18)
[2020-04-21] MEDS: MULTIVITAMIN with MINERAL TABLET. PO SCH (16:19)
[2020-04-21] MEDS: DAPTOmycin (GENERIC) IVPB 440 MG in IV NORMAL SALINE 50ML 50 ML IV SCH (17:21)
--- NOTE | 2020-04-21 17:32 | NUR ---
SW following. Reviewed chart and discussed with RN. Discharge plan remains home with son and [place] [facility] when stable. SW to continue following.
--- NOTE | 2020-04-21 18:50 | EKG ---
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
[2020-04-21 19:00] VITALS: BP 143/68
[2020-04-21] MEDS: NORTRIPTYLINE 10 MG CAPSULE PO SCH (20:34)
[2020-04-21] MEDS: GABAPENTIN 300 MG CAPSULE. PO SCH (20:34)
[2020-04-22 03:39] VITALS: BP 149/79
[2020-04-22] MEDS: oxyCODONE/APAP 5/325 1 TAB TABLET PO PRN ×5 (03:43→23:52)
[2020-04-22] MEDS: MEROPENEM 500 MG in IV NORMAL SALINE 50ML 50 ML IV SCH ×3 (06:38→21:56)
[2020-04-22 06:55] LABS: BASO % 1 % (0-3); EOS # 0.2 x10^3/uL (0.0-0.7); EOS % 4 % (0-3); HEMATOCRIT 29.8 % (36.0-47.0); HEMOGLOBIN 9.6 g/dL (12.0-15.5); LYMPH # 1.5 x10^3/uL (1.0-4.8); LYMPH % 34 % (24-48); MEAN CORPUSCULAR HEMOGLOBIN 27 pg (25-35); MEAN CORPUSCULAR HGB CONC 32 g/dL (31-37); MEAN CORPUSCULAR VOLUME 85 fL (79-100); MONO # 0.8 x10^3/uL (0.0-1.1); MONO % 18 % (0-9); NEUT # 1.8 x10^3/uL (1.8-7.7); NEUT % 43 % (31-73); PLATELET COUNT 192 x10^3/uL (140-400); RED BLOOD COUNT 3.49 x10^6/uL (3.50-5.40); RED CELL DISTRIBUTION WIDTH 20.5 % (11.5-14.5); WHITE BLOOD COUNT 4.3 x10^3/uL (4.0-11.0)
[2020-04-22 07:00] VITALS: BP 165/83
[2020-04-22 07:22] LABS: ALBUMIN 2.1 g/dL (3.4-5.0); ALBUMIN/GLOBULIN RATIO 0.5 (1.0-1.7); CALCIUM 8.5 mg/dL (8.5-10.1); CREATININE 1.1 mg/dL (0.6-1.0); GFR 48.2; POTASSIUM 3.7 mmol/L (3.5-5.1); TOTAL BILIRUBIN 0.3 mg/dL (0.2-1.0); TOTAL PROTEIN 6.3 g/dL (6.4-8.2)
--- NOTE | 2020-04-22 08:25 | RAD ---
EXAM: CHEST 1 VIEW History: Congestive heart failure COMPARISON: None available. TECHNIQUE: Single portable radiograph of the chest FINDINGS: Low lung volumes and technique accentuates heart and pulmonary vascularity. Mild cardiomegaly. Minimal prominent bilateral interstitial lung markings likely interstitial infiltrates or edema. Left-sided PICC line is identified with the tip projecting in the proximal portion of the SVC. IMPRESSION: Mild prominent appearing bilateral interstitial lung markings likely congestive changes or interstitial infiltrates. Electronically signed by: Fito Mcneil MD (04/22/2020 8:22 AM) [id number]
--- NOTE | 2020-04-22 08:38 | PDOC ---
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, check A1c, consult wound care morbid obesity, BMI 47 CHF, acute on chronic systolic, on Demedex outpatient, consult CV team, but this may be edema from her sepsis and her leg infection LE edema, consult lymphedema OT team SEPSIS admit DC IV vancomycin due to mild CINTHYA .Start daptomycin Continue meropenem and micafungin 38 min pt exam, chart review, > 50% of time spent with exam, chart review, pt care coordination Justicifation of Admission Dx: Justicifation of Admission Dx: Justifications for Admission: Justification of Admission Dx: Yes Cellulitis: Cellulitis (in Dm2, open wounds) History of Present Illness History of Present Illness History of Present Illness History of Present Illness Pt transferred from [facility] for worsening med problems. LE wounds that are not healing, wounds have looked worse and are now weeping. She has been on IV vanco and IV merrem outpatient for 3 weeks for these wounds and seeing Dr. Gregorio and she reports they are not improved. She also has new weigth gain, 5 lbs yesterday and 20lbs weight gain in a week. She has been taking her Torsemide and she complains about needing to use the bathroom every hour. She has marked hesitancy when she micturates, and often starts and stops, she has not seen a urologist. some weakness and leg pain, but that is standard she was admitted here to the COVID unit due to fever, SIRS pos, seen by me in full PPE Past Medical History Cardiovascular: CHF Pulmonary: No pertinent hx GI: No pertinent hx Musculoskeletal: low back pain Infectious disease: No pertinent hx Endocrine: Diabetes, Hypothyroidism Past Surgical History Past Surgical History: No pertinent history Family History Family History: Diabetes Social History Smoke: No ALCOHOL: none Drugs: None Vitals Vitals Vital Signs Date Time Temp Pulse Resp B/P (MAP) Pulse Ox O2 Delivery O2 Flow Rate FiO2 04/22/20 07:00 97.6 78 18 165/83 (110) Nasal Cannula 2.0 97.6 04/22/20 04:43 95 Physical Exam Physical Exam GENERAL: Alert, oriented x 3 female, lying in bed comfortably, in no acute distress. HEENT: Normocephalic, atraumatic, anicteric. No thrush. NECK: Supple, no JVD. LUNGS: Clear bilaterally. No wheezing. Decreased breath sounds at the bases. HEART: S1, S2, no murmurs. ABDOMEN: Soft, obese. Bowel sounds present, nontender, nondistended. EXTREMITIES: Bilateral lower extremity erythema, swelling. Wound dressings taken down. The patient has multiple wounds over the left lower extremity. They appear clean, has wound treatment application, right lower extremity wound appears to be stable. There is a small area of abrasion just above the dressing, which appears to be from trauma, but no purulence noted. Yeast present. Onychomycosis present. Dermatitis present. Left upper extremity PICC line is clean. DERMATOLOGIC: Warm, dry. No generalized rash. Does have fungal dermatitis below both breasts, groin and lower extremity as above. NEUROLOGIC: Alert and oriented x 3, grossly nonfocal. PSYCHIATRIC: Cooperative, appropriate mood and affect. General: Alert, Oriented X3, Cooperative, No acute distress Heart: Regular rate (SR), Other (distant heart sounds) Lungs: Crackles (bases ) Abdomen: Soft, Other (obese) Extremities: Other (erythema to bilateral LE and swelling) Skin: Other (marked LE wounds, weeping, other skin smooth and dry) Labs LABS Laboratory Tests Test 04/21/20 09:29 04/21/20 11:43 04/21/20 17:21 04/21/20 20:34 Glucose (Fingerstick) 145 mg/dL (70-99) 171 mg/dL (70-99) 180 mg/dL (70-99) 173 mg/dL (70-99) Test 04/22/20 06:30 04/22/20 08:05 White Blood Count 4.3 x10^3/uL (4.0-11.0) Red Blood Count 3.49 x10^6/uL (3.50-5.40) Hemoglobin 9.6 g/dL (12.0-15.5) Hematocrit 29.8 % (36.0-47.0) Mean Corpuscular Volume 85 fL (79-100) Mean Corpuscular Hemoglobin 27 pg (25-35) Mean Corpuscular Hemoglobin Concent 32 g/dL (31-37) Red Cell Distribution Width 20.5 % (11.5-14.5) Platelet Count 192 x10^3/uL (140-400) Neutrophils (%) (Auto) 43 % (31-73) Lymphocytes (%) (Auto) 34 % (24-48) Monocytes (%) (Auto) 18 % (0-9) Eosinophils (%) (Auto) 4 % (0-3) Basophils (%) (Auto) 1 % (0-3) Neutrophils # (Auto) 1.8 x10^3/uL (1.8-7.7) Lymphocytes # (Auto) 1.5 x10^3/uL (1.0-4.8) Monocytes # (Auto) 0.8 x10^3/uL (0.0-1.1) Eosinophils # (Auto) 0.2 x10^3/uL (0.0-0.7) Basophils # (Auto) 0.0 x10^3/uL (0.0-0.2) Sodium Level 143 mmol/L (136-145) Potassium Level 3.7 mmol/L (3.5-5.1) Chloride Level 102 mmol/L (98-107) Carbon Dioxide Level 39 mmol/L (21-32) Anion Gap 2 (6-14) Blood Urea Nitrogen 26 mg/dL (7-20) Creatinine 1.1 mg/dL (0.6-1.0) Estimated GFR (Cockcroft-Gault) 48.2 BUN/Creatinine Ratio 24 (6-20) Glucose Level 112 mg/dL (70-99) Calcium Level 8.5 mg/dL (8.5-10.1) Total Bilirubin 0.3 mg/dL (0.2-1.0) Aspartate Amino Transf (AST/SGOT) 26 U/L (15-37) Alanine Aminotransferase (ALT/SGPT) 28 U/L (14-59) Alkaline Phosphatase 71 U/L (46-116) Total Protein 6.3 g/dL (6.4-8.2) Albumin 2.1 g/dL (3.4-5.0) Albumin/Globulin Ratio 0.5 (1.0-1.7) Glucose (Fingerstick) 92 mg/dL (70-99) Comment Review of Relevant I have reviewed the following items giancarlo (where applicable) has been applied. Labs Laboratory Tests Test 04/20/20 11:10 04/20/20 12:15 04/20/20 13:46 04/20/20 16:28 Glucose (Fingerstick) 157 mg/dL (70-99) 164 mg/dL (70-99) White Blood Count 5.3 x10^3/uL (4.0-11.0) Red Blood Count 3.44 x10^6/uL (3.50-5.40) Hemoglobin 9.4 g/dL (12.0-15.5) Hematocrit 29.4 % (36.0-47.0) Mean Corpuscular Volume 85 fL (79-100) Mean Corpuscular Hemoglobin 27 pg (25-35) Mean Corpuscular Hemoglobin Concent 32 g/dL (31-37) Red Cell Distribution Width 20.5 % (11.5-14.5) Platelet Count 179 x10^3/uL (140-400) Neutrophils (%) (Auto) 60 % (31-73) Lymphocytes (%) (Auto) 21 % (24-48) Monocytes (%) (Auto) 14 % (0-9) Eosinophils (%) (Auto) 4 % (0-3) Basophils (%) (Auto) 1 % (0-3) Neutrophils # (Auto) 3.2 x10^3/uL (1.8-7.7) Lymphocytes # (Auto) 1.1 x10^3/uL (1.0-4.8) Monocytes # (Auto) 0.7 x10^3/uL (0.0-1.1) Eosinophils # (Auto) 0.2 x10^3/uL (0.0-0.7) Basophils # (Auto) 0.0 x10^3/uL (0.0-0.2) Platelet Estimate Adequate (ADEQUATE) Basophilic Stippling Present Anisocytosis Slight Sodium Level 141 mmol/L (136-145) Potassium Level 4.1 mmol/L (3.5-5.1) Chloride Level 102 mmol/L (98-107) Carbon Dioxide Level 37 mmol/L (21-32) Anion Gap 2 (6-14) Blood Urea Nitrogen 51 mg/dL (7-20) Creatinine 1.3 mg/dL (0.6-1.0) Estimated GFR (Cockcroft-Gault) 39.7 BUN/Creatinine Ratio 39 (6-20) Glucose Level 150 mg/dL (70-99) Hemoglobin A1c 6.5 % (4.8-5.6) Calcium Level 8.8 mg/dL (8.5-10.1) Magnesium Level 2.3 mg/dL (1.8-2.4) Total Bilirubin 0.3 mg/dL (0.2-1.0) Aspartate Amino Transf (AST/SGOT) 30 U/L (15-37) Alanine Aminotransferase (ALT/SGPT) 35 U/L (14-59) Alkaline Phosphatase 89 U/L (46-116) BF-Rfx-H-Type Natriuretic Peptide 1374 pg/mL (0-449) Total Protein 6.7 g/dL (6.4-8.2) Albumin 2.3 g/dL (3.4-5.0) Albumin/Globulin Ratio 0.5 (1.0-1.7) Thyroid Stimulating Hormone (TSH) 3.071 uIU/mL (0.358-3.74) Vancomycin Level Trough 12.9 mcg/mL (10.0-20.0) Vancomycin Last Dose Date 04/19/20 Vancomycin Last Dose Time 0900 Urine Collection Type Unknown Urine Color Yellow Urine Clarity Clear Urine pH 6.0 (<5.0-8.0) Urine Specific [place] 1.020 (1.000-1.030) Urine Protein 100 mg/dL (NEG-TRACE) Urine Glucose (UA) Negative mg/dL (NEG) Urine Ketones (Stick) Negative mg/dL (NEG) Urine Blood Negative (NEG) Urine Nitrite Negative (NEG) Urine Bilirubin Negative (NEG) Urine Urobilinogen Dipstick 0.2 mg/dL (0.2 mg/dL) Urine Leukocyte Esterase Negative (NEG) Urine RBC 1-2 /HPF (0-2) Urine WBC 0 /HPF (0-4) Urine Squamous Epithelial Cells Few /LPF Urine Bacteria 0 /HPF (0-FEW) Urine Hyaline Casts Few /HPF Urine Mucus Slight /LPF Test 04/20/20 21:13 04/21/20 08:17 04/21/20 08:32 04/21/20 09:29 Glucose (Fingerstick) 230 mg/dL (70-99) 59 mg/dL (70-99) 145 mg/dL (70-99) Sodium Level 144 mmol/L (136-145) Potassium Level 3.6 mmol/L (3.5-5.1) Chloride Level 104 mmol/L (98-107) Carbon Dioxide Level 37 mmol/L (21-32) Anion Gap 3 (6-14) Blood Urea Nitrogen 41 mg/dL (7-20) Creatinine 1.4 mg/dL (0.6-1.0) Estimated GFR (Cockcroft-Gault) 36.5 Glucose Level 63 mg/dL (70-99) Calcium Level 8.1 mg/dL (8.5-10.1) Magnesium Level 2.2 mg/dL (1.8-2.4) Test 04/21/20 11:43 04/21/20 17:21 04/21/20 20:34 04/22/20 06:30 Glucose (Fingerstick) 171 mg/dL (70-99) 180 mg/dL (70-99) 173 mg/dL (70-99) White Blood Count 4.3 x10^3/uL (4.0-11.0) Red Blood Count 3.49 x10^6/uL (3.50-5.40) Hemoglobin 9.6 g/dL (12.0-15.5) Hematocrit 29.8 % (36.0-47.0) Mean Corpuscular Volume 85 fL (79-100) Mean Corpuscular Hemoglobin 27 pg (25-35) Mean Corpuscular Hemoglobin Concent 32 g/dL (31-37) Red Cell Distribution Width 20.5 % (11.5-14.5) Platelet Count 192 x10^3/uL (140-400) Neutrophils (%) (Auto) 43 % (31-73) Lymphocytes (%) (Auto) 34 % (24-48) Monocytes (%) (Auto) 18 % (0-9) Eosinophils (%) (Auto) 4 % (0-3) Basophils (%) (Auto) 1 % (0-3) Neutrophils # (Auto) 1.8 x10^3/uL (1.8-7.7) Lymphocytes # (Auto) 1.5 x10^3/uL (1.0-4.8) Monocytes # (Auto) 0.8 x10^3/uL (0.0-1.1) Eosinophils # (Auto) 0.2 x10^3/uL (0.0-0.7) Basophils # (Auto) 0.0 x10^3/uL (0.0-0.2) Sodium Level 143 mmol/L (136-145) Potassium Level 3.7 mmol/L (3.5-5.1) Chloride Level 102 mmol/L (98-107) Carbon Dioxide Level 39 mmol/L (21-32) Anion Gap 2 (6-14) Blood Urea Nitrogen 26 mg/dL (7-20) Creatinine 1.1 mg/dL (0.6-1.0) Estimated GFR (Cockcroft-Gault) 48.2 BUN/Creatinine Ratio 24 (6-20) Glucose Level 112 mg/dL (70-99) Calcium Level 8.5 mg/dL (8.5-10.1) Total Bilirubin 0.3 mg/dL (0.2-1.0) Aspartate Amino Transf (AST/SGOT) 26 U/L (15-37) Alanine Aminotransferase (ALT/SGPT) 28 U/L (14-59) Alkaline Phosphatase 71 U/L (46-116) Total Protein 6.3 g/dL (6.4-8.2) Albumin 2.1 g/dL (3.4-5.0) Albumin/Globulin Ratio 0.5 (1.0-1.7) Test 04/22/20 08:05 Glucose (Fingerstick) 92 mg/dL (70-99) Laboratory Tests Test 04/21/20 09:29 04/21/20 11:43 04/21/20 17:21 04/21/20 20:34 Glucose (Fingerstick) 145 mg/dL (70-99) 171 mg/dL (70-99) 180 mg/dL (70-99) 173 mg/dL (70-99) Test 04/22/20 06:30 04/22/20 08:05 White Blood Count 4.3 x10^3/uL (4.0-11.0) Red Blood Count 3.49 x10^6/uL (3.50-5.40) Hemoglobin 9.6 g/dL (12.0-15.5) Hematocrit 29.8 % (36.0-47.0) Mean Corpuscular Volume 85 fL (79-100) Mean Corpuscular Hemoglobin 27 pg (25-35) Mean Corpuscular Hemoglobin Concent 32 g/dL (31-37) Red Cell Distribution Width 20.5 % (11.5-14.5) Platelet Count 192 x10^3/uL (140-400) Neutrophils (%) (Auto) 43 % (31-73) Lymphocytes (%) (Auto) 34 % (24-48) Monocytes (%) (Auto) 18 % (0-9) Eosinophils (%) (Auto) 4 % (0-3) Basophils (%) (Auto) 1 % (0-3) Neutrophils # (Auto) 1.8 x10^3/uL (1.8-7.7) Lymphocytes # (Auto) 1.5 x10^3/uL (1.0-4.8) Monocytes # (Auto) 0.8 x10^3/uL (0.0-1.1) Eosinophils # (Auto) 0.2 x10^3/uL (0.0-0.7) Basophils # (Auto) 0.0 x10^3/uL (0.0-0.2) Sodium Level 143 mmol/L (136-145) Potassium Level 3.7 mmol/L (3.5-5.1) Chloride Level 102 mmol/L (98-107) Carbon Dioxide Level 39 mmol/L (21-32) Anion Gap 2 (6-14) Blood Urea Nitrogen 26 mg/dL (7-20) Creatinine 1.1 mg/dL (0.6-1.0) Estimated GFR (Cockcroft-Gault) 48.2 BUN/Creatinine Ratio 24 (6-20) Glucose Level 112 mg/dL (70-99) Calcium Level 8.5 mg/dL (8.5-10.1) Total Bilirubin 0.3 mg/dL (0.2-1.0) Aspartate Amino Transf (AST/SGOT) 26 U/L (15-37) Alanine Aminotransferase (ALT/SGPT) 28 U/L (14-59) Alkaline Phosphatase 71 U/L (46-116) Total Protein 6.3 g/dL (6.4-8.2) Albumin 2.1 g/dL (3.4-5.0) Albumin/Globulin Ratio 0.5 (1.0-1.7) Glucose (Fingerstick) 92 mg/dL (70-99) Medications Current Medications Oxycodone/ Acetaminophen (Percocet 5/325) 1 tab PRN Q4HRS PRN PO PAIN Last administered on 04/22/20 03:43; Start 04/20/20 at 03:15 Vancomycin HCl (Vanco Per Pharmacy) 1 each PRN DAILY PRN MC SEE COMMENTS Last administered on 04/20/20 13:36; Start 04/20/20 at 09:30; Stop 04/21/20 at 16:55; Status DC Meropenem 500 mg/ Sodium Chloride 50 ml @ 100 mls/hr Q8HRS IV Last administered on 04/22/20 06:38; Start 04/20/20 at 14:00 Amlodipine Besylate (Norvasc) 5 mg DAILY PO Last administered on 04/21/20 11:54; Start 04/20/20 at 10:00 Aspirin (Aspirin Chewable) 81 mg DAILY PO Last administered on 04/21/20 11:56; Start 04/20/20 at 10:00 Fentanyl (Duragesic 25mcg/ Hr Patch) 1 patch Q3DAYS TD Last administered on 10:46; Start 04/20/20 at 10:00 Gabapentin (Neurontin) 300 mg HS PO Last administered on 04/21/20 20:34; Start 04/20/20 at 21:00 Levothyroxine Sodium (Synthroid) 75 mcg DAILYAC PO Last administered on 04/21/20 06:27; Start 04/21/20 at 07:30 Nortriptyline HCl (Pamelor) 10 mg QHS PO Last administered on 04/21/20 20:34; Start 04/20/20 at 21:00 Pantoprazole Sodium (Protonix) 40 mg DAILYAC PO Last administered on 04/21/20 06:27; Start 04/20/20 at 10:00 Ropinirole HCl (Requip) 0.25 mg TID PO Last administered on 04/21/20 20:34; Start 04/20/20 at 14:00 Torsemide (Demadex) 20 mg BID PO Last administered on 04/20/20at 21:02; Start 04/20/20 at 21:00; Stop 04/21/20 at 08:33; Status DC Insulin Glargine (Lantus Syringe) 25 unit BID SQ Last administered on 04/21/20at 20:46; Start 04/20/20 at 11:00 Lactobacillus Rhamnosus (Culturelle) 1 cap DAILY PO Last administered on 04/21/20at 11:54; Start 04/20/20 at 10:00 Multivitamins (Thera M Plus) 1 tab QMWF PO Last administered on 04/21/20at 16:19; Start 04/21/20 at 16:00 Zinc Sulfate (Orazinc) 220 mg DAILY PO Last administered on 04/21/20at 11:54; Start 04/21/20 at 09:00 Ascorbic Acid (Vitamin C) 500 mg DAILY PO Last administered on 04/21/20at 11:54; Start 04/20/20 at 10:00 Vancomycin HCl 2 gm/Sodium Chloride 500 ml @ 250 mls/hr 1X ONCE IV ; Start 04/20/20 at 10:00; Stop 04/20/20 at 11:59; Status Cancel Enoxaparin Sodium (Lovenox Per Pharmacy Prophylaxis Dosing) 1 each PRN DAILY PRN MC SEE COMMENTS; Start 04/20/20 at 09:45 Enoxaparin Sodium (Lovenox 40mg Syringe) 40 mg BID SQ Last administered on 04/21/20at 20:35; Start 04/20/20 at 10:00 Furosemide (Lasix) 40 mg 1X ONCE IVP Last administered on 04/20/20at 13:39; Start 04/20/20 at 12:15; Stop 04/20/20 at 12:16; Status DC Vancomycin HCl 1.25 gm/Sodium Chloride 250 ml @ 167 mls/hr Q24H IV Last administered on 04/20/20at 18:07; Start 04/20/20 at 15:00; Stop 04/21/20 at 13:51; Status DC Vancomycin HCl (Vancomycin Trough Level) 1 each 1X ONCE MC ; Start 04/22/20 at 14:30; Stop 04/22/20 at 14:31; Status Cancel Micafungin Sodium 100 mg/Dextrose 100 ml @ 100 mls/hr Q24H IV Last administered on 04/21/20at 16:18; Start 04/20/20 at 15:00 Nystatin (Nystop) 1 jaime BID TP Last administered on 04/21/20at 20:35; Start 04/20/20 at 21:00 Dextrose (Dextrose 50%-Water Syringe) 12.5 gm PRN Q15MIN PRN IV SEE COMMENTS; Start 04/20/20 at 20:15 Torsemide (Demadex) 20 mg [id number] PO ; Start 04/21/20 at 16:00; Stop 04/21/20 at 14:56; Status DC Daptomycin 440 mg/ Sodium Chloride 50 ml @ 100 mls/hr Q24H IV Last administered on 04/21/20at 17:21; Start 04/21/20 at 16:00 Torsemide (Demadex) 20 mg [id number] PO ; Start 04/22/20 at 09:00 Furosemide (Lasix) 40 mg 1X ONCE IVP Last administered on 04/21/20at 16:18; Start 04/21/20 at 16:00; Stop 04/21/20 at 16:01; Status DC Active Scripts Active Reported Lantus Solostar (Insulin Glargine,Hum.rec.anlog) 100 Unit/1 Ml Insuln.pen 25 Unit SQ BID Gabapentin (Gabapentin) 300 Mg Capsule 300 Mg PO HS Novolog (Insulin Aspart) 100 Unit/1 Ml Vial 100 Unit SQ TIDAC Torsemide 20 Mg Tablet 1 Tab PO BID Nortriptyline Hcl 10 Mg Capsule 1 Cap PO QHS Amlodipine Besylate 5 Mg Tablet 5 Mg PO DAILY FENTANYL 25mcg/hr (Fentanyl) 1 Each Patch.td72 1 Patch TP Q3DAYS Percocet 5-325 Mg Tablet (Oxycodone/Acetaminophen) 1 Each Tablet 1 Tab PO PRN Q4HRS PRN Glimepiride 4 Mg Tablet 1 Tab PO DAILY Multivitamins (Multivitamin) 1 Each Tablet 1 Tab PO MWF Aspirin 81 Mg Tab.chew 1 Tab PO DAILY Ropinirole Hcl 0.25 Mg Tablet 0.25 Mg PO TID Levothyroxine Sodium 75 Mcg Tablet 75 Mcg PO DAILYAC Magnesium Oxide 400 Mg Tablet 1 Tab PO BID Pantoprazole Sodium (Pantoprazole Sodium) 40 Mg Tablet.dr 40 Mg PO DAILYAC Acidophilus (Lactobacillus Acidophilus) 1 Each Capsule 1 Cap PO DAILY 14 Days Klor-Con 10 (Potassium Chloride) 10 Meq Tablet.er 1 Tab PO DAILY 30 Days Vitals/I & O Vital Sign - Last 24 Hours 04/21/20 04/21/20 04/21/20 04/21/20 11:30 11:54 11:57 12:57 Temp 97.8 97.8 Pulse 85 78 Resp 16 B/P (MAP) 144/61 (88) 152/85 Pulse Ox 93 95 95 O2 Delivery Nasal Cannula Nasal Cannula Nasal Cannula O2 Flow Rate 1.0 2.0 2.0 04/21/20 04/21/20 04/21/20 04/21/20 15:00 16:19 17:19 19:00 Temp 98.3 98.3 Pulse 89 79 Resp 18 B/P (MAP) 128/63 (84) 143/68 (93) Pulse Ox 95 95 95 97 O2 Delivery Nasal Cannula Nasal Cannula Nasal Cannula Nasal Cannula O2 Flow Rate 1.0 1.0 1.0 1.0 04/21/20 04/21/20 04/21/20 04/22/20 20:00 20:37 21:37 03:39 Temp 98.1 98.1 Pulse 90 Resp 20 B/P (MAP) 149/79 (102) Pulse Ox 95 95 95 O2 Delivery Nasal Cannula Nasal Cannula Nasal Cannula Nasal Cannula O2 Flow Rate 1.0 1.0 1.0 1.0 04/22/20 04/22/20 04/22/20 03:43 04:43 07:00 Temp 97.6 97.6 Pulse 78 Resp 18 B/P (MAP) 165/83 (110) Pulse Ox 95 95 O2 Delivery Nasal Cannula Nasal Cannula Nasal Cannula O2 Flow Rate 1.0 1.0 2.0 Intake and Output 04/21/20 04/21/20 04/22/20 15:00 23:00 07:00 Intake Total 500 ml Output Total 2700 ml 1500 ml Balance -2700 ml -1000 ml Justicifation of Admission Dx: Justifications for Admission: Justification of Admission Dx: Yes Cellulitis: Cellulitis (in Dm2, open wounds) EVITA BELL MD Apr 22, 2020 08:38
[2020-04-22] MEDS: LEVOTHYROXINE 75 MCG TABLET PO SCH (08:55)
[2020-04-22] MEDS: ASPIRIN CHEWABLE 81 MG TABLET. PO SCH (08:55)
[2020-04-22] MEDS: ZINC SULFATE 220 MG CAPSULE. PO SCH (08:55)
[2020-04-22] MEDS: LACTOBACILLUS RHAMNOSUS GG 1 CAPSULE. PO SCH (08:56)
[2020-04-22] MEDS: amLODIPine BESYLATE 5 MG TABLET PO SCH (08:56)
[2020-04-22] MEDS: ENOXAPARIN 40 MG/0.4 ML SYRINGE. SQ SCH ×2 (08:56→20:09)
[2020-04-22] MEDS: TORSEMIDE 20 MG TABLET. PO SCH ×2 (08:56→18:04)
[2020-04-22] MEDS: PANTOPRAZOLE 40 MG TABLET.DR. PO SCH (08:56)
[2020-04-22] MEDS: ASCORBIC ACID 500 MG TABLET PO SCH (08:56)
[2020-04-22] MEDS: rOPINIRole 0.25 MG TABLET. PO SCH ×3 (08:56→20:09)
[2020-04-22] MEDS: INSULIN GLARGINE SYRINGE. SQ SCH ×2 (09:00→20:13)
[2020-04-22] MEDS: NYSTATIN TOPICAL POWDER 15GM BOTTLE. TP SCH ×2 (09:00→20:13)
--- NOTE | 2020-04-22 10:55 | PDOC ---
PULMONARY PROGRESS NOTES DATE: 04/22/20 TIME: 10:54 Subjective patient resting on 2 liters N/C , reports she is breathing much better today, denies cough or CP a-febrile, no overnight concerns from nursing Vitals Vital Signs Date Time Temp Pulse Resp B/P (MAP) Pulse Ox O2 Delivery O2 Flow Rate FiO2 04/22/20 08:56 78 165/83 04/22/20 08:55 17 Nasal Cannula 2.0 04/22/20 07:00 97.6 97.6 04/22/20 04:43 95 ROS: No Nausea, No Chest Pain, No Abdominal Pain, No Increase Cough General: Alert Lungs: Crackles (bases ) Cardiovascular: S1, S2 Abdomen: Soft, Non-tender Neuro Exam: Alert Extremities: Other (+2 BLE ) Skin: Warm, Dry Labs Laboratory Tests Test 04/20/20 11:10 04/20/20 12:15 04/20/20 13:46 04/20/20 16:28 Glucose (Fingerstick) 157 mg/dL (70-99) 164 mg/dL (70-99) White Blood Count 5.3 x10^3/uL (4.0-11.0) Red Blood Count 3.44 x10^6/uL (3.50-5.40) Hemoglobin 9.4 g/dL (12.0-15.5) Hematocrit 29.4 % (36.0-47.0) Mean Corpuscular Volume 85 fL (79-100) Mean Corpuscular Hemoglobin 27 pg (25-35) Mean Corpuscular Hemoglobin Concent 32 g/dL (31-37) Red Cell Distribution Width 20.5 % (11.5-14.5) Platelet Count 179 x10^3/uL (140-400) Neutrophils (%) (Auto) 60 % (31-73) Lymphocytes (%) (Auto) 21 % (24-48) Monocytes (%) (Auto) 14 % (0-9) Eosinophils (%) (Auto) 4 % (0-3) Basophils (%) (Auto) 1 % (0-3) Neutrophils # (Auto) 3.2 x10^3/uL (1.8-7.7) Lymphocytes # (Auto) 1.1 x10^3/uL (1.0-4.8) Monocytes # (Auto) 0.7 x10^3/uL (0.0-1.1) Eosinophils # (Auto) 0.2 x10^3/uL (0.0-0.7) Basophils # (Auto) 0.0 x10^3/uL (0.0-0.2) Platelet Estimate Adequate (ADEQUATE) Basophilic Stippling Present Anisocytosis Slight Sodium Level 141 mmol/L (136-145) Potassium Level 4.1 mmol/L (3.5-5.1) Chloride Level 102 mmol/L (98-107) Carbon Dioxide Level 37 mmol/L (21-32) Anion Gap 2 (6-14) Blood Urea Nitrogen 51 mg/dL (7-20) Creatinine 1.3 mg/dL (0.6-1.0) Estimated GFR (Cockcroft-Gault) 39.7 BUN/Creatinine Ratio 39 (6-20) Glucose Level 150 mg/dL (70-99) Hemoglobin A1c 6.5 % (4.8-5.6) Calcium Level 8.8 mg/dL (8.5-10.1) Magnesium Level 2.3 mg/dL (1.8-2.4) Total Bilirubin 0.3 mg/dL (0.2-1.0) Aspartate Amino Transf (AST/SGOT) 30 U/L (15-37) Alanine Aminotransferase (ALT/SGPT) 35 U/L (14-59) Alkaline Phosphatase 89 U/L (46-116) JN-Pov-W-Type Natriuretic Peptide 1374 pg/mL (0-449) Total Protein 6.7 g/dL (6.4-8.2) Albumin 2.3 g/dL (3.4-5.0) Albumin/Globulin Ratio 0.5 (1.0-1.7) Thyroid Stimulating Hormone (TSH) 3.071 uIU/mL (0.358-3.74) Vancomycin Level Trough 12.9 mcg/mL (10.0-20.0) Vancomycin Last Dose Date 04/19/20 Vancomycin Last Dose Time 0900 Urine Collection Type Unknown Urine Color Yellow Urine Clarity Clear Urine pH 6.0 (<5.0-8.0) Urine Specific [place] 1.020 (1.000-1.030) Urine Protein 100 mg/dL (NEG-TRACE) Urine Glucose (UA) Negative mg/dL (NEG) Urine Ketones (Stick) Negative mg/dL (NEG) Urine Blood Negative (NEG) Urine Nitrite Negative (NEG) Urine Bilirubin Negative (NEG) Urine Urobilinogen Dipstick 0.2 mg/dL (0.2 mg/dL) Urine Leukocyte Esterase Negative (NEG) Urine RBC 1-2 /HPF (0-2) Urine WBC 0 /HPF (0-4) Urine Squamous Epithelial Cells Few /LPF Urine Bacteria 0 /HPF (0-FEW) Urine Hyaline Casts Few /HPF Urine Mucus Slight /LPF Test 04/20/20 21:13 04/21/20 08:17 04/21/20 08:32 04/21/20 09:29 Glucose (Fingerstick) 230 mg/dL (70-99) 59 mg/dL (70-99) 145 mg/dL (70-99) Sodium Level 144 mmol/L (136-145) Potassium Level 3.6 mmol/L (3.5-5.1) Chloride Level 104 mmol/L (98-107) Carbon Dioxide Level 37 mmol/L (21-32) Anion Gap 3 (6-14) Blood Urea Nitrogen 41 mg/dL (7-20) Creatinine 1.4 mg/dL (0.6-1.0) Estimated GFR (Cockcroft-Gault) 36.5 Glucose Level 63 mg/dL (70-99) Calcium Level 8.1 mg/dL (8.5-10.1) Magnesium Level 2.2 mg/dL (1.8-2.4) Test 04/21/20 11:43 04/21/20 17:21 04/21/20 20:34 04/22/20 06:30 Glucose (Fingerstick) 171 mg/dL (70-99) 180 mg/dL (70-99) 173 mg/dL (70-99) White Blood Count 4.3 x10^3/uL (4.0-11.0) Red Blood Count 3.49 x10^6/uL (3.50-5.40) Hemoglobin 9.6 g/dL (12.0-15.5) Hematocrit 29.8 % (36.0-47.0) Mean Corpuscular Volume 85 fL (79-100) Mean Corpuscular Hemoglobin 27 pg (25-35) Mean Corpuscular Hemoglobin Concent 32 g/dL (31-37) Red Cell Distribution Width 20.5 % (11.5-14.5) Platelet Count 192 x10^3/uL (140-400) Neutrophils (%) (Auto) 43 % (31-73) Lymphocytes (%) (Auto) 34 % (24-48) Monocytes (%) (Auto) 18 % (0-9) Eosinophils (%) (Auto) 4 % (0-3) Basophils (%) (Auto) 1 % (0-3) Neutrophils # (Auto) 1.8 x10^3/uL (1.8-7.7) Lymphocytes # (Auto) 1.5 x10^3/uL (1.0-4.8) Monocytes # (Auto) 0.8 x10^3/uL (0.0-1.1) Eosinophils # (Auto) 0.2 x10^3/uL (0.0-0.7) Basophils # (Auto) 0.0 x10^3/uL (0.0-0.2) Sodium Level 143 mmol/L (136-145) Potassium Level 3.7 mmol/L (3.5-5.1) Chloride Level 102 mmol/L (98-107) Carbon Dioxide Level 39 mmol/L (21-32) Anion Gap 2 (6-14) Blood Urea Nitrogen 26 mg/dL (7-20) Creatinine 1.1 mg/dL (0.6-1.0) Estimated GFR (Cockcroft-Gault) 48.2 BUN/Creatinine Ratio 24 (6-20) Glucose Level 112 mg/dL (70-99) Calcium Level 8.5 mg/dL (8.5-10.1) Total Bilirubin 0.3 mg/dL (0.2-1.0) Aspartate Amino Transf (AST/SGOT) 26 U/L (15-37) Alanine Aminotransferase (ALT/SGPT) 28 U/L (14-59) Alkaline Phosphatase 71 U/L (46-116) Total Protein 6.3 g/dL (6.4-8.2) Albumin 2.1 g/dL (3.4-5.0) Albumin/Globulin Ratio 0.5 (1.0-1.7) Test 04/22/20 08:05 Glucose (Fingerstick) 92 mg/dL (70-99) Laboratory Tests Test 04/21/20 11:43 04/21/20 17:21 04/21/20 20:34 04/22/20 06:30 Glucose (Fingerstick) 171 mg/dL (70-99) 180 mg/dL (70-99) 173 mg/dL (70-99) White Blood Count 4.3 x10^3/uL (4.0-11.0) Red Blood Count 3.49 x10^6/uL (3.50-5.40) Hemoglobin 9.6 g/dL (12.0-15.5) Hematocrit 29.8 % (36.0-47.0) Mean Corpuscular Volume 85 fL (79-100) Mean Corpuscular Hemoglobin 27 pg (25-35) Mean Corpuscular Hemoglobin Concent 32 g/dL (31-37) Red Cell Distribution Width 20.5 % (11.5-14.5) Platelet Count 192 x10^3/uL (140-400) Neutrophils (%) (Auto) 43 % (31-73) Lymphocytes (%) (Auto) 34 % (24-48) Monocytes (%) (Auto) 18 % (0-9) Eosinophils (%) (Auto) 4 % (0-3) Basophils (%) (Auto) 1 % (0-3) Neutrophils # (Auto) 1.8 x10^3/uL (1.8-7.7) Lymphocytes # (Auto) 1.5 x10^3/uL (1.0-4.8) Monocytes # (Auto) 0.8 x10^3/uL (0.0-1.1) Eosinophils # (Auto) 0.2 x10^3/uL (0.0-0.7) Basophils # (Auto) 0.0 x10^3/uL (0.0-0.2) Sodium Level 143 mmol/L (136-145) Potassium Level 3.7 mmol/L (3.5-5.1) Chloride Level 102 mmol/L (98-107) Carbon Dioxide Level 39 mmol/L (21-32) Anion Gap 2 (6-14) Blood Urea Nitrogen 26 mg/dL (7-20) Creatinine 1.1 mg/dL (0.6-1.0) Estimated GFR (Cockcroft-Gault) 48.2 BUN/Creatinine Ratio 24 (6-20) Glucose Level 112 mg/dL (70-99) Calcium Level 8.5 mg/dL (8.5-10.1) Total Bilirubin 0.3 mg/dL (0.2-1.0) Aspartate Amino Transf (AST/SGOT) 26 U/L (15-37) Alanine Aminotransferase (ALT/SGPT) 28 U/L (14-59) Alkaline Phosphatase 71 U/L (46-116) Total Protein 6.3 g/dL (6.4-8.2) Albumin 2.1 g/dL (3.4-5.0) Albumin/Globulin Ratio 0.5 (1.0-1.7) Test 04/22/20 08:05 Glucose (Fingerstick) 92 mg/dL (70-99) Medications Active Scripts Medications Dose Route/Sig Max Daily Dose Days Date Category Lantus Solostar (Insulin Glargine,Hum.rec.anlog) 100 Unit/1 Ml Insuln.pen 25 Unit SQ BID 04/20/20 Reported Gabapentin (Gabapentin) 300 Mg Capsule 300 Mg PO HS 04/20/20 Reported Novolog (Insulin Aspart) 100 Unit/1 Ml Vial 100 Unit SQ TIDAC 04/20/20 Reported Torsemide 20 Mg Tablet 1 Tab PO BID 04/20/20 Reported Nortriptyline Hcl 10 Mg Capsule 1 Cap PO QHS 04/20/20 Reported Amlodipine Besylate 5 Mg Tablet 5 Mg PO DAILY 04/20/20 Reported FENTANYL 25mcg/hr (Fentanyl) 1 Each Patch.td72 1 Patch TP Q3DAYS 04/20/20 Reported Percocet 5-325 Mg Tablet (Oxycodone/Acetaminophen) 1 Each Tablet 1 Tab PO PRN Q4HRS PRN 04/20/20 Reported Glimepiride 4 Mg Tablet 1 Tab PO DAILY 04/20/20 Reported Multivitamins (Multivitamin) 1 Each Tablet 1 Tab PO MWF 04/20/20 Reported Aspirin 81 Mg Tab.chew 1 Tab PO DAILY 04/20/20 Reported Ropinirole Hcl 0.25 Mg Tablet 0.25 Mg PO TID 04/20/20 Reported Levothyroxine Sodium 75 Mcg Tablet 75 Mcg PO DAILYAC 04/20/20 Reported Magnesium Oxide 400 Mg Tablet 1 Tab PO BID 04/20/20 Reported Pantoprazole Sodium (Pantoprazole Sodium) 40 Mg Tablet. 40 Mg PO DAILYAC 04/20/20 Reported Acidophilus (Lactobacillus Acidophilus) 1 Each Capsule 1 Cap PO DAILY 14 04/20/20 Reported Klor-Con 10 (Potassium Chloride) 10 Meq Tablet.er 1 Tab PO DAILY 30 04/20/20 Reported Impression . IMPRESSION: 1. Acute hypoxic respiratory failure secondary to acute on chronic diastolic heart failure. This is a patient who has put on 20 pounds in last [address] chest done at [facility] with no evidence of PE, but bilateral interstitial infiltrates suggestive of congestive heart failure. 3. Underlying morbid obesity and obstructive sleep apnea, on home CPAP with good compliance. 4. Prerenal azotemia. 5. Severe protein-calorie malnutrition. Plan . RECOMMENDATIONS: 1. Continue with present oxygen, requiring on 2 liters N/C 2. P.r.n. Lasix, keeping a close eye on her renal function. 3. Follow on CXR today with mild persistent interstitial infiltrates. will order HRCT chest for ILD 4. Antibiotics for her cellulitis and chronic wounds per Infectious Disease. 5. DVT prophylaxis with Lovenox. 6. Follow Cardiology recs 7. Discussed with ZUNILDA. VICTORINA FERREIRA MD Apr 22, 2020 10:55
[2020-04-22 11:00] VITALS: BP 148/76
--- NOTE | 2020-04-22 11:43 | NUR ---
CHRIS following. Reviewed chart and discussed with RN. Discharge plan remains home with son and [facility]. CHRIS coordinated care with the son today. Pt remains COVID pending and RN to call [facility] to check on status of results. Pt will have weekly wound care visits from on discharge. Pt has PICC and will discharge on IV abx. Pt currently on Dapto. Pt uses [facility] and will be followed by Dr. Fuller. CHRIS phoned and faxed clinicals to both [facility], , (fax) and [facility], , (fax). Addendum: 04/22/20 at 1250 by SEVEN PEREZ Spoke with Marina at [facility] ([phone]) to coordinate care and they will take this pt at discharge.
--- NOTE | 2020-04-22 12:26 | PDOC ---
Infectious Disease Note Subjective: Subjective Patient feels much better Denies fever, nausea, vomiting, shortness of breath, diarrhea, abdominal pain, rash Otherwise as above Vital Signs: Vital Signs Vital Signs Date Time Temp Pulse Resp B/P (MAP) Pulse Ox O2 Delivery O2 Flow Rate FiO2 04/22/20 09:55 17 Nasal Cannula 04/22/20 08:56 78 165/83 04/22/20 08:55 2.0 04/22/20 07:00 97.6 97.6 04/22/20 04:43 95 Physical Exam: PHYSICAL EXAM GENERAL: Alert, oriented x 3 female, lying in bed comfortably, in no acute distress. HEENT: Normocephalic, atraumatic, anicteric. No thrush. NECK: Supple, no JVD. LUNGS: Clear bilaterally. No wheezing. Decreased breath sounds at the bases. HEART: S1, S2, no murmurs. ABDOMEN: Soft, obese. Bowel sounds present, nontender, nondistended. EXTREMITIES: Bilateral lower extremity erythema, swelling. Improved, wound dressings Intact, dry, DERMATOLOGIC: Warm, dry. No generalized rash. Does have fungal dermatitis below both breasts, groin and lower extremity as above. NEUROLOGIC: Alert and oriented x 3, grossly nonfocal. PSYCHIATRIC: Cooperative, appropriate mood and affect. Left upper extremity PICC line is clean. Medications: Inpatient Meds: Current Medications Medications (Trade) Dose Ordered Sig/[facility] Start Time Stop Time Status Last Admin Dose Admin Amlodipine Besylate (Norvasc) 5 mg DAILY 04/20/20 10:00 04/22/20 08:56 5 MG Ascorbic Acid (Vitamin C) 500 mg DAILY 04/20/20 10:00 04/22/20 08:56 500 MG Aspirin (Aspirin Chewable) 81 mg DAILY 04/20/20 10:00 04/22/20 08:55 81 MG Daptomycin 440 mg/ Sodium Chloride 50 ml @ 100 mls/hr Q24H 04/21/20 16:00 04/21/20 17:21 100 MLS/HR Dextrose (Dextrose 50%-Water Syringe) 12.5 gm PRN Q15MIN PRN 04/20/20 20:15 Enoxaparin Sodium (Lovenox 40mg Syringe) 40 mg BID 04/20/20 10:00 04/22/20 08:56 40 MG Enoxaparin Sodium (Lovenox Per Pharmacy Prophylaxis Dosing) 1 each PRN DAILY PRN 04/20/20 09:45 Fentanyl (Duragesic 25mcg/ Hr Patch) 1 patch Q3DAYS 04/20/20 10:00 04/20/20 10:46 1 PATCH Furosemide (Lasix) 40 mg 1X ONCE 04/21/20 16:00 04/21/20 16:01 DC 04/21/20 16:18 40 MG Gabapentin (Neurontin) 300 mg HS 04/20/20 21:00 04/21/20 20:34 300 MG Insulin Glargine (Lantus Syringe) 25 unit BID 04/20/20 11:00 04/22/20 09:00 25 UNIT Lactobacillus Rhamnosus (Culturelle) 1 cap DAILY 04/20/20 10:00 04/22/20 08:56 1 CAP Levothyroxine Sodium (Synthroid) 75 mcg DAILYAC 04/21/20 07:30 04/22/20 08:55 75 MCG Meropenem 500 mg/ Sodium Chloride 50 ml @ 100 mls/hr Q8HRS 04/20/20 14:00 04/22/20 06:38 100 MLS/HR Micafungin Sodium 100 mg/Dextrose 100 ml @ 100 mls/hr Q24H 04/20/20 15:00 04/21/20 16:18 100 MLS/HR Multivitamins (Thera M Plus) 1 tab QMWF 04/21/20 16:00 04/21/20 16:19 1 TAB Nortriptyline HCl (Pamelor) 10 mg QHS 04/20/20 21:00 04/21/20 20:34 10 MG Nystatin (Nystop) 1 jaime BID 04/20/20 21:00 04/22/20 09:00 1 JAIME Oxycodone/ Acetaminophen (Percocet 5/325) 1 tab PRN Q4HRS PRN 04/20/20 03:15 04/22/20 08:55 1 TAB Pantoprazole Sodium (Protonix) 40 mg DAILYAC 04/20/20 10:00 04/22/20 08:56 40 MG Ropinirole HCl (Requip) 0.25 mg TID 04/20/20 14:00 04/22/20 08:56 0.25 MG Torsemide (Demadex) 20 mg [id number] 04/22/20 09:00 04/22/20 08:56 20 MG Vancomycin HCl (Vanco Per Pharmacy) 1 each PRN DAILY PRN 04/20/20 09:30 04/21/20 16:55 DC 04/20/20 13:36 1 EACH Vancomycin HCl (Vancomycin Trough Level) 1 each 1X ONCE 04/22/20 14:30 04/22/20 14:31 Cancel Vancomycin HCl 1.25 gm/Sodium Chloride 250 ml @ 167 mls/hr Q24H 04/20/20 15:00 04/21/20 13:51 DC 04/20/20 18:07 167 MLS/HR Vancomycin HCl 2 gm/Sodium Chloride 500 ml @ 250 mls/hr 1X ONCE 04/20/20 10:00 04/20/20 11:59 Cancel Zinc Sulfate (Orazinc) 220 mg DAILY 04/21/20 09:00 04/22/20 08:55 220 MG Labs: Lab Laboratory Tests Test 04/21/20 17:21 04/21/20 20:34 04/22/20 06:30 04/22/20 08:05 Glucose (Fingerstick) 180 mg/dL (70-99) 173 mg/dL (70-99) 92 mg/dL (70-99) White Blood Count 4.3 x10^3/uL (4.0-11.0) Red Blood Count 3.49 x10^6/uL (3.50-5.40) Hemoglobin 9.6 g/dL (12.0-15.5) Hematocrit 29.8 % (36.0-47.0) Mean Corpuscular Volume 85 fL (79-100) Mean Corpuscular Hemoglobin 27 pg (25-35) Mean Corpuscular Hemoglobin Concent 32 g/dL (31-37) Red Cell Distribution Width 20.5 % (11.5-14.5) Platelet Count 192 x10^3/uL (140-400) Neutrophils (%) (Auto) 43 % (31-73) Lymphocytes (%) (Auto) 34 % (24-48) Monocytes (%) (Auto) 18 % (0-9) Eosinophils (%) (Auto) 4 % (0-3) Basophils (%) (Auto) 1 % (0-3) Neutrophils # (Auto) 1.8 x10^3/uL (1.8-7.7) Lymphocytes # (Auto) 1.5 x10^3/uL (1.0-4.8) Monocytes # (Auto) 0.8 x10^3/uL (0.0-1.1) Eosinophils # (Auto) 0.2 x10^3/uL (0.0-0.7) Basophils # (Auto) 0.0 x10^3/uL (0.0-0.2) Sodium Level 143 mmol/L (136-145) Potassium Level 3.7 mmol/L (3.5-5.1) Chloride Level 102 mmol/L (98-107) Carbon Dioxide Level 39 mmol/L (21-32) Anion Gap 2 (6-14) Blood Urea Nitrogen 26 mg/dL (7-20) Creatinine 1.1 mg/dL (0.6-1.0) Estimated GFR (Cockcroft-Gault) 48.2 BUN/Creatinine Ratio 24 (6-20) Glucose Level 112 mg/dL (70-99) Calcium Level 8.5 mg/dL (8.5-10.1) Total Bilirubin 0.3 mg/dL (0.2-1.0) Aspartate Amino Transf (AST/SGOT) 26 U/L (15-37) Alanine Aminotransferase (ALT/SGPT) 28 U/L (14-59) Alkaline Phosphatase 71 U/L (46-116) Total Protein 6.3 g/dL (6.4-8.2) Albumin 2.1 g/dL (3.4-5.0) Albumin/Globulin Ratio 0.5 (1.0-1.7) Test 04/22/20 12:08 Glucose (Fingerstick) 141 mg/dL (70-99) Objective: Assessment: 1. Chronic bilateral lower extremity wounds for 3 years with recent infection diagnosed at [facility], status post debridement at outside hospital about 3-4 weeks ago, on IV vancomycin and meropenem bobby SPIVEY MD, Dr. Fuller along with wound care treatment. 2. Dyspnea with febrile illness, 3. History of congestive heart failure. 4. Chronic venous insufficiency with chronic lymphedema. 5. Anemia. 6. Fungal dermatitis. 7. Obesity. 8. Peripheral neuropathy. 9. Diabetes. 10. Hypothyroidism. 11. COVID suspect, results are pending at this time. Plan: Plan of Care Okay to discharge home from ID standpoint dose micafungin before discharge Continue IV Vanco and meropenem home dosing per Dr. Alina SPIVEY MD as outpatient Continue wound care as directed Follow-up with next week Elevate both lower extremities. Continue PICC line care. Discussed with nursing staff LAYLA CRAWFORD MD Apr 22, 2020 12:26
[2020-04-22 15:00] VITALS: BP 140/62
[2020-04-22] MEDS: MICAFUNGIN 100 MG in IV DEXTROSE 5% 100ML 100 ML IV SCH (15:40)
--- NOTE | 2020-04-22 16:44 | PDOC ---
PROGRESS NOTES Date of Service: DATE: 04/22/20 TIME: 16:43 Subjective Subjective Feeling better. Denied any CP or dyspnea Objective Objective Vital Signs Date Time Temp Pulse Resp B/P (MAP) Pulse Ox O2 Delivery O2 Flow Rate FiO2 04/22/20 14:10 18 Nasal Cannula 2.0 04/22/20 11:00 97.0 72 148/76 (100) 95 97.0 Intake and Output 04/22/20 07:00 Intake Total 500 ml Output Total 4200 ml Balance -3700 ml Intake Oral 500 ml Output Urine Total 4200 ml # Voids 1 # Bowel Movements 2 Physical Exam Abdomen: Soft, Other (obese) Heart: Regular rate (SR), Other (distant heart sounds) Extremities: Other (erythema to bilateral LE and swelling) General: Alert, Oriented X3, Cooperative, No acute distress HEENT: Mucous membr. moist/pink Lungs: Clear to auscultation, Other (diminished) MUSCULOSKELETAL: Osteoarthritic changes both hands Neuro: Normal speech, Sensation intact Psych/Mental Status: Mental status NL, Mood NL Skin: Other (marked LE wounds, weeping, other skin smooth and dry) Assessment Assessment 1. LE cellulitis: on meropenem and vancomycin IV at home 2. Acute on chronic diastolic CHF: better compensated with diuresis 3. Morbid obesity 4. HTN: controlled 5. HLP 6. Hypothyroidism 7. Hx of LLE moderate PAD and venous insufficienc: past ablation 8. SUNDAR: uses CPAP 9. CINTHYA vs CKD: Cr better 10. Hx of pyoderma gangrenosum: treated with cyclosporine/prednisone in the past 12. Covid negative Follow up in one month Comment Review of Relevant I have reviewed the following items giancarlo (where applicable) has been applied. Labs Laboratory Tests Test 04/21/20 17:21 04/21/20 20:34 04/22/20 06:30 04/22/20 08:05 Glucose (Fingerstick) 180 mg/dL (70-99) 173 mg/dL (70-99) 92 mg/dL (70-99) White Blood Count 4.3 x10^3/uL (4.0-11.0) Red Blood Count 3.49 x10^6/uL (3.50-5.40) Hemoglobin 9.6 g/dL (12.0-15.5) Hematocrit 29.8 % (36.0-47.0) Mean Corpuscular Volume 85 fL (79-100) Mean Corpuscular Hemoglobin 27 pg (25-35) Mean Corpuscular Hemoglobin Concent 32 g/dL (31-37) Red Cell Distribution Width 20.5 % (11.5-14.5) Platelet Count 192 x10^3/uL (140-400) Neutrophils (%) (Auto) 43 % (31-73) Lymphocytes (%) (Auto) 34 % (24-48) Monocytes (%) (Auto) 18 % (0-9) Eosinophils (%) (Auto) 4 % (0-3) Basophils (%) (Auto) 1 % (0-3) Neutrophils # (Auto) 1.8 x10^3/uL (1.8-7.7) Lymphocytes # (Auto) 1.5 x10^3/uL (1.0-4.8) Monocytes # (Auto) 0.8 x10^3/uL (0.0-1.1) Eosinophils # (Auto) 0.2 x10^3/uL (0.0-0.7) Basophils # (Auto) 0.0 x10^3/uL (0.0-0.2) Sodium Level 143 mmol/L (136-145) Potassium Level 3.7 mmol/L (3.5-5.1) Chloride Level 102 mmol/L (98-107) Carbon Dioxide Level 39 mmol/L (21-32) Anion Gap 2 (6-14) Blood Urea Nitrogen 26 mg/dL (7-20) Creatinine 1.1 mg/dL (0.6-1.0) Estimated GFR (Cockcroft-Gault) 48.2 BUN/Creatinine Ratio 24 (6-20) Glucose Level 112 mg/dL (70-99) Calcium Level 8.5 mg/dL (8.5-10.1) Total Bilirubin 0.3 mg/dL (0.2-1.0) Aspartate Amino Transf (AST/SGOT) 26 U/L (15-37) Alanine Aminotransferase (ALT/SGPT) 28 U/L (14-59) Alkaline Phosphatase 71 U/L (46-116) Total Protein 6.3 g/dL (6.4-8.2) Albumin 2.1 g/dL (3.4-5.0) Albumin/Globulin Ratio 0.5 (1.0-1.7) Test 04/22/20 12:08 Glucose (Fingerstick) 141 mg/dL (70-99) Medications Current Medications Torsemide (Demadex) 20 mg [id number] PO Last administered on 04/22/20at 08:56; Start 04/22/20 at 09:00 Vancomycin HCl (Vancomycin Trough Level) 1 each 1X ONCE [facility] ; Start 04/22/20 at 14:30; Stop 04/22/20 at 14:31; Status Cancel Vitals/I & O Vital Sign - Last 24 Hours 04/21/20 04/21/20 04/21/20 04/21/20 17:19 19:00 20:00 20:37 Pulse 79 B/P (MAP) 143/68 (93) Pulse Ox 95 97 95 O2 Delivery Nasal Cannula Nasal Cannula Nasal Cannula Nasal Cannula O2 Flow Rate 1.0 1.0 1.0 1.0 04/21/20 04/22/20 04/22/20 04/22/20 21:37 03:39 03:43 04:43 Temp 98.1 98.1 Pulse 90 Resp 20 B/P (MAP) 149/79 (102) Pulse Ox 95 95 95 95 O2 Delivery Nasal Cannula Nasal Cannula Nasal Cannula Nasal Cannula O2 Flow Rate 1.0 1.0 1.0 1.0 04/22/20 04/22/20 04/22/20 04/22/20 07:00 08:00 08:55 08:56 Temp 97.6 97.6 Pulse 78 78 Resp 18 17 B/P (MAP) 165/83 (110) 165/83 O2 Delivery Nasal Cannula Nasal Cannula Nasal Cannula O2 Flow Rate 2.0 2.0 2.0 04/22/20 04/22/20 04/22/20 09:55 11:00 14:10 Temp 97.0 97.0 Pulse 72 Resp 17 18 B/P (MAP) 148/76 (100) Pulse Ox 95 O2 Delivery Nasal Cannula Nasal Cannula Nasal Cannula O2 Flow Rate 2.0 2.0 Intake and Output 04/21/20 04/21/20 04/22/20 15:00 23:00 07:00 Intake Total 500 ml Output Total 2700 ml 1500 ml Balance -2700 ml -1000 ml JACKIE MUSE MD Apr 22, 2020 16:43
--- NOTE | 2020-04-22 17:10 | NUR ---
Pt transferred to [address] per wheelchair. Report called to Myrna MAURO. Son also notified.
[2020-04-22] MEDS: DAPTOmycin (GENERIC) IVPB 440 MG in IV NORMAL SALINE 50ML 50 ML IV SCH (18:10)
[2020-04-22] MEDS ORDERED: quiNINE 324 MG CAPSULE. PO PRN (18:45)
[2020-04-22 19:00] VITALS: BP 153/94
[2020-04-22] MEDS ORDERED: quiNINE 324 MG CAPSULE. PO ONE (19:00)
[2020-04-22] MEDS ORDERED: fentaNYL 50MCG/HR PATCH 1 PATCH PATCH.TD72 TD SCH (20:00)
[2020-04-22] MEDS: NORTRIPTYLINE 10 MG CAPSULE PO SCH (20:09)
[2020-04-22] MEDS: GABAPENTIN 300 MG CAPSULE. PO SCH (20:09)
[2020-04-22 23:00] VITALS: BP 149/69
--- NOTE | 2020-04-22 23:20 | RAD ---
EXAM: CT Chest without IV contrast INDICATION: Reason: POSSIBLE ILD VS CHF. TECHNIQUE: Multi-detector row CT images were acquired from the thoracic inlet through the upper abdomen without the use of IV contrast. Sagittal and coronal images were acquired from the transaxial data. All CT scans performed at this facility utilize dose optimization techniques as appropriate to the exam, including the following: Automated exposure control and adjustment of the mA and/or KV according to patient size (this includes techniques or standardized protocols for targeted exams where dose is indication/reason for exam). COMPARISON: Chest x-ray of 04/22/[address] Pulmonary Angiogram 04/19/2020 FINDINGS: The absence of IV contrast limits evaluation of soft tissue pathology. CARDIOVASCULAR: Unremarkable MEDIASTINUM & PRANAY: No adenopathy or masses. LUNGS: Reticular opacities in the lungs are present in a predominantly peripheral distribution with additional findings of volume loss in the left hemithorax and mild bronchiectasis. PLEURAL SPACE: No pleural effusions or pneumothorax. OSSEOUS & SOFT TISSUE: Unremarkable ABDOMEN: The visualized portions of the upper abdomen are unremarkable. IMPRESSION: Findings strongly favor interstitial lung disease over congestive heart failure. Electronically signed by: Christina Redmond MD (04/22/2020 11:17 PM) [facility]
[2020-04-23 03:00] VITALS: BP 94/55
[2020-04-23] MEDS: oxyCODONE/APAP 5/325 1 TAB TABLET PO PRN ×2 (06:01→13:29)
[2020-04-23] MEDS: LEVOTHYROXINE 75 MCG TABLET PO SCH (06:01)
[2020-04-23] MEDS: PANTOPRAZOLE 40 MG TABLET.DR. PO SCH (06:01)
[2020-04-23] MEDS: MEROPENEM 500 MG in IV NORMAL SALINE 50ML 50 ML IV SCH ×2 (06:02→13:19)
[2020-04-23 07:00] VITALS: BP 109/50
[2020-04-23] MEDS: TORSEMIDE 20 MG TABLET. PO SCH ×2 (08:13→15:54)
[2020-04-23] MEDS: rOPINIRole 0.25 MG TABLET. PO SCH ×2 (08:13→13:29)
[2020-04-23] MEDS: LACTOBACILLUS RHAMNOSUS GG 1 CAPSULE. PO SCH (08:13)
[2020-04-23] MEDS: ENOXAPARIN 40 MG/0.4 ML SYRINGE. SQ SCH (08:13)
[2020-04-23] MEDS: ZINC SULFATE 220 MG CAPSULE. PO SCH (08:13)
[2020-04-23] MEDS: ASPIRIN CHEWABLE 81 MG TABLET. PO SCH (08:13)
[2020-04-23] MEDS: fentaNYL 25MCG/HR PATCH 1 PATCH PATCH.TD72 TD SCH (08:13)
[2020-04-23] MEDS: ASCORBIC ACID 500 MG TABLET PO SCH (08:14)
[2020-04-23] MEDS: amLODIPine BESYLATE 5 MG TABLET PO SCH (08:14)
[2020-04-23] MEDS: NYSTATIN TOPICAL POWDER 15GM BOTTLE. TP SCH (08:20)
[2020-04-23] MEDS: INSULIN GLARGINE SYRINGE. SQ SCH (08:20)
--- NOTE | 2020-04-23 09:46 | PDOC ---
Infectious Disease Note Subjective: Subjective Patient feels much better Denies fever, nausea, vomiting, shortness of breath, diarrhea, abdominal pain, rash Otherwise as above ready for dc home today per team Vital Signs: Vital Signs Vital Signs Date Time Temp Pulse Resp B/P (MAP) Pulse Ox O2 Delivery O2 Flow Rate FiO2 04/23/20 08:14 84 109/50 04/23/20 08:13 16 Room Air 04/23/20 07:00 98.0 97 98.0 04/23/20 06:01 2.0 Physical Exam: PHYSICAL EXAM GENERAL: Alert, oriented x 3 female, lying in bed comfortably, in no acute distress. HEENT: Normocephalic, atraumatic, anicteric. No thrush. NECK: Supple, no JVD. LUNGS: Clear bilaterally. No wheezing. Decreased breath sounds at the bases. HEART: S1, S2, no murmurs. ABDOMEN: Soft, obese. Bowel sounds present, nontender, nondistended. EXTREMITIES: Bilateral lower extremity erythema, swelling. Improved, wound dressings Intact, dry, DERMATOLOGIC: Warm, dry. No generalized rash. Does have fungal dermatitis below both breasts, groin and lower extremity as above. NEUROLOGIC: Alert and oriented x 3, grossly nonfocal. PSYCHIATRIC: Cooperative, appropriate mood and affect. Left upper extremity PICC line is clean. Medications: Inpatient Meds: Current Medications Medications (Trade) Dose Ordered Sig/[facility] Start Time Stop Time Status Last Admin Dose Admin Amlodipine Besylate (Norvasc) 5 mg DAILY 04/20/20 10:00 04/23/20 08:14 5 MG Ascorbic Acid (Vitamin C) 500 mg DAILY 04/20/20 10:00 04/23/20 08:14 500 MG Aspirin (Aspirin Chewable) 81 mg DAILY 04/20/20 10:00 04/23/20 08:13 81 MG Daptomycin 440 mg/ Sodium Chloride 50 ml @ 100 mls/hr Q24H 04/21/20 16:00 04/22/20 18:10 100 MLS/HR Dextrose (Dextrose 50%-Water Syringe) 12.5 gm PRN Q15MIN PRN 04/20/20 20:15 Enoxaparin Sodium (Lovenox 40mg Syringe) 40 mg BID 04/20/20 10:00 04/23/20 08:13 40 MG Enoxaparin Sodium (Lovenox Per Pharmacy Prophylaxis Dosing) 1 each PRN DAILY PRN 04/20/20 09:45 Fentanyl (Duragesic 25mcg/ Hr Patch) 1 patch Q3DAYS 04/20/20 10:00 04/26/20 09:00 04/23/20 08:13 1 PATCH Fentanyl (Duragesic 50mcg/ Hr Patch) 1 patch Q3DAYS 04/22/20 20:00 Cancel Furosemide (Lasix) 40 mg 1X ONCE 04/21/20 16:00 04/21/20 16:01 DC 04/21/20 16:18 40 MG Gabapentin (Neurontin) 300 mg HS 04/20/20 21:00 04/22/20 20:09 300 MG Insulin Glargine (Lantus Syringe) 25 unit BID 04/20/20 11:00 04/23/20 08:20 25 UNIT Lactobacillus Rhamnosus (Culturelle) 1 cap DAILY 04/20/20 10:00 04/23/20 08:13 1 CAP Levothyroxine Sodium (Synthroid) 75 mcg DAILYAC 04/21/20 07:30 04/23/20 06:01 75 MCG Meropenem 500 mg/ Sodium Chloride 50 ml @ 100 mls/hr Q8HRS 04/20/20 14:00 04/23/20 06:02 100 MLS/HR Micafungin Sodium 100 mg/Dextrose 100 ml @ 100 mls/hr Q24H 04/20/20 15:00 04/22/20 15:40 100 MLS/HR Multivitamins (Thera M Plus) 1 tab QMWF 04/21/20 16:00 04/21/20 16:19 1 TAB Nortriptyline HCl (Pamelor) 10 mg QHS 04/20/20 21:00 04/22/20 20:09 10 MG Nystatin (Nystop) 1 jaime BID 04/20/20 21:00 04/23/20 08:20 1 JAIME Oxycodone/ Acetaminophen (Percocet 5/325) 1 tab PRN Q4HRS PRN 04/20/20 03:15 04/23/20 06:01 1 TAB Pantoprazole Sodium (Protonix) 40 mg DAILYAC 04/20/20 10:00 04/23/20 06:01 40 MG Quinine Sulfate (Qualaquin) 324 mg PRN QHS PRN 04/22/20 18:45 Ropinirole HCl (Requip) 0.25 mg TID 04/20/20 14:00 04/23/20 08:13 0.25 MG Torsemide (Demadex) 20 mg [id number] 04/22/20 09:00 04/23/20 08:13 20 MG Vancomycin HCl (Vanco Per Pharmacy) 1 each PRN DAILY PRN 04/20/20 09:30 04/21/20 16:55 DC 04/20/20 13:36 1 EACH Vancomycin HCl (Vancomycin Trough Level) 1 each 1X ONCE 04/22/20 14:30 04/22/20 14:31 Cancel Vancomycin HCl 1.25 gm/Sodium Chloride 250 ml @ 167 mls/hr Q24H 04/20/20 15:00 04/21/20 13:51 DC 04/20/20 18:07 167 MLS/HR Vancomycin HCl 2 gm/Sodium Chloride 500 ml @ 250 mls/hr 1X ONCE 04/20/20 10:00 04/20/20 11:59 Cancel Zinc Sulfate (Orazinc) 220 mg DAILY 04/21/20 09:00 04/23/20 08:13 220 MG Labs: Lab Laboratory Tests Test 04/22/20 12:08 04/22/20 17:32 04/22/20 20:07 04/23/20 07:14 Glucose (Fingerstick) 141 mg/dL (70-99) 190 mg/dL (70-99) 188 mg/dL (70-99) 96 mg/dL (70-99) Objective: Assessment: 1. Chronic bilateral lower extremity wounds for 3 years with recent infection diagnosed at [facility], status post debridement at outside hospital about 3-4 weeks ago, on IV vancomycin and meropenem bobby SPIVEY MD, Dr. Fuller along with wound care treatment. 2. Dyspnea with febrile illness, 3. History of congestive heart failure. 4. Chronic venous insufficiency with chronic lymphedema. 5. Anemia. 6. Fungal dermatitis. 7. Obesity. 8. Peripheral neuropathy. 9. Diabetes. 10. Hypothyroidism. 11. COVID suspect, results are pending at this time. Plan: Plan of Care Okay to discharge home from ID standpoint dose micafungin and dapto today before discharge Continue IV Vanco starting tomorrow and meropenem home dosing per Dr. Alina SPIVEY MD as outpatient script in chart sw to assist with home dc antibiotics Continue wound care as directed Follow-up with next week Apr 26 week Elevate both lower extremities. Continue PICC line care. s/e of antibiotics discussed probiotics Discussed with nursing staff LAYLA CRAWFORD MD Apr 23, 2020 09:46
--- NOTE | 2020-04-23 09:57 | PDOC ---
PULMONARY PROGRESS NOTES DATE: 04/23/20 TIME: 09:54 Subjective patient resting on 2 liters N/C , Feeling good today, No SOB, or increased cough Vitals Vital Signs Date Time Temp Pulse Resp B/P (MAP) Pulse Ox O2 Delivery O2 Flow Rate FiO2 04/23/20 08:14 84 109/50 04/23/20 08:13 16 Room Air 04/23/20 07:00 98.0 97 98.0 04/23/20 06:01 2.0 ROS: No Nausea, No Chest Pain, No Abdominal Pain, No Increase Cough General: Alert Lungs: Crackles (bases ) Cardiovascular: S1, S2 Abdomen: Soft, Non-tender Neuro Exam: Alert Extremities: Other (+2 BLE ) Skin: Warm, Dry Labs Laboratory Tests Test 04/21/20 11:43 04/21/20 17:21 04/21/20 20:34 04/22/20 06:30 Glucose (Fingerstick) 171 mg/dL (70-99) 180 mg/dL (70-99) 173 mg/dL (70-99) White Blood Count 4.3 x10^3/uL (4.0-11.0) Red Blood Count 3.49 x10^6/uL (3.50-5.40) Hemoglobin 9.6 g/dL (12.0-15.5) Hematocrit 29.8 % (36.0-47.0) Mean Corpuscular Volume 85 fL (79-100) Mean Corpuscular Hemoglobin 27 pg (25-35) Mean Corpuscular Hemoglobin Concent 32 g/dL (31-37) Red Cell Distribution Width 20.5 % (11.5-14.5) Platelet Count 192 x10^3/uL (140-400) Neutrophils (%) (Auto) 43 % (31-73) Lymphocytes (%) (Auto) 34 % (24-48) Monocytes (%) (Auto) 18 % (0-9) Eosinophils (%) (Auto) 4 % (0-3) Basophils (%) (Auto) 1 % (0-3) Neutrophils # (Auto) 1.8 x10^3/uL (1.8-7.7) Lymphocytes # (Auto) 1.5 x10^3/uL (1.0-4.8) Monocytes # (Auto) 0.8 x10^3/uL (0.0-1.1) Eosinophils # (Auto) 0.2 x10^3/uL (0.0-0.7) Basophils # (Auto) 0.0 x10^3/uL (0.0-0.2) Sodium Level 143 mmol/L (136-145) Potassium Level 3.7 mmol/L (3.5-5.1) Chloride Level 102 mmol/L (98-107) Carbon Dioxide Level 39 mmol/L (21-32) Anion Gap 2 (6-14) Blood Urea Nitrogen 26 mg/dL (7-20) Creatinine 1.1 mg/dL (0.6-1.0) Estimated GFR (Cockcroft-Gault) 48.2 BUN/Creatinine Ratio 24 (6-20) Glucose Level 112 mg/dL (70-99) Calcium Level 8.5 mg/dL (8.5-10.1) Total Bilirubin 0.3 mg/dL (0.2-1.0) Aspartate Amino Transf (AST/SGOT) 26 U/L (15-37) Alanine Aminotransferase (ALT/SGPT) 28 U/L (14-59) Alkaline Phosphatase 71 U/L (46-116) Total Protein 6.3 g/dL (6.4-8.2) Albumin 2.1 g/dL (3.4-5.0) Albumin/Globulin Ratio 0.5 (1.0-1.7) Test 04/22/20 08:05 04/22/20 12:08 04/22/20 17:32 04/22/20 20:07 Glucose (Fingerstick) 92 mg/dL (70-99) 141 mg/dL (70-99) 190 mg/dL (70-99) 188 mg/dL (70-99) Test 04/23/20 07:14 Glucose (Fingerstick) 96 mg/dL (70-99) Laboratory Tests Test 04/22/20 12:08 04/22/20 17:32 04/22/20 20:07 04/23/20 07:14 Glucose (Fingerstick) 141 mg/dL (70-99) 190 mg/dL (70-99) 188 mg/dL (70-99) 96 mg/dL (70-99) Medications Active Scripts Medications Dose Route/Sig Max Daily Dose Days Date Category Lantus Solostar (Insulin Glargine,Hum.rec.anlog) 100 Unit/1 Ml Insuln.pen 25 Unit SQ BID 04/20/20 Reported Gabapentin (Gabapentin) 300 Mg Capsule 300 Mg PO HS 04/20/20 Reported Novolog (Insulin Aspart) 100 Unit/1 Ml Vial 100 Unit SQ TIDAC 04/20/20 Reported Torsemide 20 Mg Tablet 1 Tab PO BID 04/20/20 Reported Nortriptyline Hcl 10 Mg Capsule 1 Cap PO QHS 04/20/20 Reported Amlodipine Besylate 5 Mg Tablet 5 Mg PO DAILY 04/20/20 Reported FENTANYL 25mcg/hr (Fentanyl) 1 Each Patch.td72 1 Patch TP Q3DAYS 04/20/20 Reported Percocet 5-325 Mg Tablet (Oxycodone/Acetaminophen) 1 Each Tablet 1 Tab PO PRN Q4HRS PRN 04/20/20 Reported Glimepiride 4 Mg Tablet 1 Tab PO DAILY 04/20/20 Reported Multivitamins (Multivitamin) 1 Each Tablet 1 Tab PO MWF 04/20/20 Reported Aspirin 81 Mg Tab.chew 1 Tab PO DAILY 04/20/20 Reported Ropinirole Hcl 0.25 Mg Tablet 0.25 Mg PO TID 04/20/20 Reported Levothyroxine Sodium 75 Mcg Tablet 75 Mcg PO DAILYAC 04/20/20 Reported Magnesium Oxide 400 Mg Tablet 1 Tab PO BID 04/20/20 Reported Pantoprazole Sodium (Pantoprazole Sodium) 40 Mg Tablet.dr 40 Mg PO DAILYAC 04/20/20 Reported Acidophilus (Lactobacillus Acidophilus) 1 Each Capsule 1 Cap PO DAILY 14 04/20/20 Reported Klor-Con 10 (Potassium Chloride) 10 Meq Tablet.er 1 Tab PO DAILY 30 04/20/[address] chest IMPRESSION: Findings strongly favor interstitial lung disease over congestive heart failure. Impression . IMPRESSION: 1. Acute hypoxic respiratory failure secondary to acute on chronic diastolic heart failure. This is a patient who has put on 20 pounds in last [address] chest done at [facility] with no evidence of PE, but bilateral interstitial infiltrates suggestive of congestive heart failure. 3. Underlying morbid obesity and obstructive sleep apnea, on home CPAP with good compliance. 4. Prerenal azotemia. 5. Severe protein-calorie malnutrition. 6. 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 RECOMMENDATIONS: Continue with present oxygen, requiring on 2 liters N/C CT chest reviewed likely early IPF, not further intervention at this time, follow up in office for repeat CT in 4-6 months Antibiotics for her cellulitis and chronic wounds per Infectious Disease. DVT prophylaxis with Lovenox. Follow Cardiology recs Discussed with ZUNILDA. VICTORINA FERREIRA MD Apr 23, 2020 09:57
--- NOTE | 2020-04-23 09:59 | NUR ---
CHRIS following. Discussed with RN, pt transferred from [address] [place] [id number]. CHRIS awaiting determination of IV abx needed at home to send to [facility]. Home Health services arranged with [facility]. Awaiting discharge orders. CHRIS will continue to follow. Addendum: 04/23/20 at 1140 by MARQUISE PEREZ CHRIS faxed script to [facility] to check benefits. CHRIS will continue to follow. Addendum: 04/23/20 at 1517 by MARQUISE PEREZ Pt already on services with [facility], cost the same. CHRIS faxed discharge orders to [facility] and [facility]. Pt will discharge home today. No further CHRIS needs.
[2020-04-23 10:54] VITALS: BP 134/53
[2020-04-23] MEDS ORDERED: ASCO500T4 PO (11:54)
[2020-04-23] MEDS: MICAFUNGIN 100 MG in IV DEXTROSE 5% 100ML 100 ML IV SCH (14:27)
--- NOTE | 2020-04-23 14:39 | SNU/HH DC ---
DISCHARGE WITH HOME HEALTH DISCHARGE INFORMATION: Discharge Date: Apr 23, 2020 Final Diagnosis: wound infection Condition on Discharge: Stable CODE STATUS: Code Status: Full HOME HEALTH: Face to Face: I certify this patient is under my care and that I, or a nurse practitioner or physician's assistant baseball coach working with me, had a face to face encounter that meets the physician face to face encounter requirements with this patient on 04/23 Medical Complications: Other M[facility] For: IV Infusion Therapy RN For Eval/Treatment: Yes Physical Therapy For: Evalulation/Treatment Occupational Therapy For: Evaluation/Treatment Pt Meets Homebound Status: Unsteady balance w/ amb, POST DISCHARGE ORDERS: DIET AFTER DISCHARGE: ADA FOLLOW-UP: Follow up with: primary care 1 weeks TREATMENT/EQUIPMENT ORDERS: Adaptive Equipment Issued: Front wheeled walker CERTIFICATION STATEMENT: Certification Statement: Certification Statement: Based on the above finding, I certify that this patient is confined to the home and needs intermittent long-term care, physical therapy and/or speech therapy, or continues to need occupational therapy.~ This patient is under my care, and I have initiated the establishment of the plan of care.~ This patient will be followed by myself or a community physician who will periodically review the plan of care. Home Meds Reported Medications Insulin Glargine,Hum.rec.anlog (LANTUS SOLOSTAR) 100 Unit/1 Ml Insuln.pen, 25 UNIT SQ BID for DM, #15 ML 5 Refills 04/20/20 Gabapentin (GABAPENTIN ) 300 Mg Capsule, 300 MG PO HS for NEUROGENIC PAIN, CAP 04/20/20 Insulin Aspart (NOVOLOG) 100 Unit/1 Ml Vial, 100 UNIT SQ TIDAC for DM, VIAL 04/20/20 Torsemide (TORSEMIDE) 20 Mg Tablet, 1 TAB PO BID for diuretic, #90 TAB 1 Refill 04/20/20 Nortriptyline Hcl (NORTRIPTYLINE HCL) 10 Mg Capsule, 1 CAP PO QHS for pain adjunct, #30 CAP 04/20/20 Amlodipine Besylate (AMLODIPINE BESYLATE) 5 Mg Tablet, 5 MG PO DAILY for HTN, TAB 04/20/20 Fentanyl (FENTANYL 25mcg/hr) 1 Each Patch.td72, 1 PATCH TP Q3DAYS for pain, #10 PATCH 04/20/20 Oxycodone/Apap 5-325 (PERCOCET 5-325 MG TABLET ) 1 Each Tablet, 1 TAB PO PRN Q4HRS PRN for PAIN, TAB 0 Refills 04/20/20 Glimepiride (GLIMEPIRIDE) 4 Mg Tablet, 1 TAB PO DAILY for DM, #30 TAB 5 Refills 04/20/20 Multivitamin (MULTIVITAMINS) 1 Each Tablet, 1 TAB PO MWF for supplement, #90 TAB 3 Refills 04/20/20 Aspirin (ASPIRIN) 81 Mg Tab.chew, 1 TAB PO DAILY for blood thinner, #30 TAB 3 Refills 04/20/20 Ropinirole Hcl (ROPINIROLE HCL) 0.25 Mg Tablet, 0.25 MG PO TID for RLS, TAB 04/20/20 Levothyroxine Sodium (LEVOTHYROXINE SODIUM) 75 Mcg Tablet, 75 MCG PO DAILYAC for THYROID SUPPLEMENT, #30 TAB 0 Refills 04/20/20 Magnesium Oxide (MAGNESIUM OXIDE) 400 Mg Tablet, 1 TAB PO BID for supplement, #60 TAB 5 Refills 04/20/20 Pantoprazole Sodium (PANTOPRAZOLE SODIUM ) 40 Mg Tablet.dr, 40 MG PO DAILYAC for GERD, TAB 04/20/20 Lactobacillus Acidophilus (ACIDOPHILUS) 1 Each Capsule, 1 CAP PO DAILY for supplement for 14 Days, #14 CAP 0 Refills 04/20/20 Potassium Chloride (KLOR-CON 10) 10 Meq Tablet.er, 1 TAB PO DAILY for supplement for 30 Days, #30 TAB 0 Refills 04/20/20 LADI SALMERON MD Apr 23, 2020 14:39
[2020-04-23 15:00] VITALS: BP 141/75
[2020-04-23] MEDS: MULTIVITAMIN with MINERAL TABLET. PO SCH (15:54)
[2020-04-23] MEDS: DAPTOmycin (GENERIC) IVPB 440 MG in IV NORMAL SALINE 50ML 50 ML IV SCH (15:54)
--- NOTE | 2020-04-23 17:09 | NUR ---
Discharge instructions and belongings reviewed with patient, verbalized understanding. Patient was escorted out via wheelchair by Hyacinth MORSE accompanied by her son.
--- NOTE | 2020-05-11 14:56 | PDOC3 ---
Discharge Summary Visit Information Date of Admission: Apr 20, 2020 Date of Discharge: Apr 23, 2020 Final Diagnosis 1. Acute hypoxic respiratory failure secondary to acute on chronic diastolic heart failure. This is a patient who has put on 20 pounds in last [address] chest done at [facility] with no evidence of PE, but bilateral interstitial infiltrates suggestive of congestive heart failure. 3. Underlying morbid obesity and obstructive sleep apnea, on home CPAP with good compliance. 4. Prerenal azotemia. 5. Severe protein-calorie malnutrition. 6. 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 Spencer is a 79-year-old female who presented with complaints of leg swelling, redness with some shortness of breath. admit to r/o COVID suspect. She was snet to ER by the wound team for chronic lower extremity wounds for the last 3 years. s/p I+D, then on merrem and vanc for 3 weeks, Discharge Information Condition at Discharge: Improved Follow Up: Weeks Disposition/Orders: D/C to Home w/ HH Scheduled Amlodipine Besylate (Amlodipine Besylate) 5 Mg Tablet, 5 MG PO DAILY for HTN, (Reported) Entered as Reported by: EVITA POWERS on 04/20/20306 Last Action: Continued on 04/20/20930 by LADI SALMERON Ascorbic Acid (Vitamin C) 500 Mg Tablet, 500 MG PO DAILY for chronic leg ulcers MDD 500 mg daily, #60 Prescribed by: LADI SALMERON on 04/23/20 1154 Aspirin (Aspirin) 81 Mg Tab.chew, 1 TAB PO DAILY for blood thinner, #30 Ref 3 (Reported) Entered as Reported by: EVITA POWERS on 04/20/20306 Last Action: Continued on 04/20/20930 by LADI SALMERON Fentanyl (FENTANYL 25mcg/hr) 1 Each Patch.td72, 1 PATCH TP Q3DAYS for pain, #10 (Reported) Entered as Reported by: EVITA POWERS on 04/20/20306 Last Action: Continued on 04/20/20930 by LADI SALMERON Gabapentin (Gabapentin ) 300 Mg Capsule, 300 MG PO HS for NEUROGENIC PAIN, (Reported) Entered as Reported by: EVITA POWERS on 04/20/20306 Last Action: Continued on 04/20/20930 by LADI SALMERON Glimepiride (Glimepiride) 4 Mg Tablet, 1 TAB PO DAILY for DM, #30 Ref 5 (Reported) Entered as Reported by: EVITA POWERS on 04/20/20306 Last Action: HELD on 04/20/20930 by LADI SALMERON Insulin Aspart (Novolog) 100 Unit/1 Ml Vial, 100 UNIT SQ TIDAC for DM, (Reported) Entered as Reported by: EVITA POWERS on 04/20/20306 Last Action: New Order on 04/20/20306 by EVITA POWERS Insulin Glargine,Hum.rec.anlog (Lantus Solostar) 100 Unit/1 Ml Insuln.pen, 25 UNIT SQ BID for DM, #15 Ref 5 (Reported) Entered as Reported by: EVITA POWERS on 04/20/20306 Last Action: Converted on 04/20/20930 by LADI SALMERON Lactobacillus Acidophilus (Acidophilus) 1 Each Capsule, 1 CAP PO DAILY for supplement for 14 Days, #14 Ref 0 (Reported) Entered as Reported by: EVITA POWERS on 04/20/20306 Last Action: Converted on 04/20/20930 by LADI SALMERON Levothyroxine Sodium (Levothyroxine Sodium) 75 Mcg Tablet, 75 MCG PO DAILYAC for THYROID SUPPLEMENT, #30 Ref 0 (Reported) Entered as Reported by: EVITA POWERS on 04/20/20306 Last Action: Continued on 04/20/20930 by LADI SALMERON Magnesium Oxide (Magnesium Oxide) 400 Mg Tablet, 1 TAB PO BID for supplement, #60 Ref 5 (Reported) Entered as Reported by: EVITA POWERS on 04/20/20306 Last Action: New Order on 04/20/20306 by EVITA POWERS Multivitamin (Multivitamins) 1 Each Tablet, 1 TAB PO MWF for supplement, #90 Ref 3 (Reported) Entered as Reported by: EVITA POWERS on 04/20/20306 Last Action: Converted on 04/20/20930 by LADI SALMERON Nortriptyline Hcl (Nortriptyline Hcl) 10 Mg Capsule, 1 CAP PO QHS for pain adj unct, #30 (Reported) Entered as Reported by: EVITA POWERS on 04/20/20306 Last Action: Continued on 04/20/20930 by LADI SALMERON Pantoprazole Sodium (Pantoprazole Sodium ) 40 Mg Tablet.dr, 40 MG PO DAILYAC for GERD, (Reported) Entered as Reported by: EVITA POWERS on 04/20/20306 Last Action: Continued on 04/20/20930 by LADI SALMERON Potassium Chloride (Klor-Con 10) 10 Meq Tablet.er, 1 TAB PO DAILY for supplement for 30 Days, #30 Ref 0 (Reported) Entered as Reported by: EVITA POWERS on 04/20/20306 Last Action: New Order on 04/20/20306 by EVITA POWERS Ropinirole Hcl (Ropinirole Hcl) 0.25 Mg Tablet, 0.25 MG PO TID for RLS, (Reported) Entered as Reported by: EVITA POWERS on 04/20/20306 Last Action: Continued on 04/20/20930 by LADI SALMERON Torsemide (Torsemide) 20 Mg Tablet, 1 TAB PO BID for diuretic, #90 Ref 1 (Reported) Entered as Reported by: EVITA POWERS on 04/20/20306 Last Action: Continued on 04/20/20930 by LADI SALMERON Scheduled PRN Oxycodone/Apap 5-325 (Percocet 5-325 Mg Tablet ) 1 Each Tablet, 1 TAB PO PRN Q4HRS PRN for PAIN, Ref 0 (Reported) Entered as Reported by: EVITA POWERS on 04/20/20306 Last Action: Continued on 04/20/20312 by EVITA POWERS Patient Instructions Patient Instructions > 30 min Justicifation of Admission Dx: Justifications for Admission: Justification of Admission Dx: Yes Cellulitis: Cellulitis (in Dm2, open wounds) LADI SALMERON MD May 11, 2020 14:56
== END 2020-04-23 17:10 | disposition home health service (06) | DRG 871 ==
LOC: 6 SOUTH 00:55 → 4 NORTH 04-22 17:00
PROVIDERS: ADMIT Internal Medicine; ATTEND Internal Medicine
DX: A41.9 Sepsis, unspecified organism (principal); J96.01 Acute respiratory failure with hypoxia; I50.43 Acute on chronic combined systolic (congestive) and diastolic (congestive) heart failure; E43 Unspecified severe protein-calorie malnutrition; L03.116 Cellulitis of left lower limb; N17.9 Acute kidney failure, unspecified; Z68.41 Body mass index [BMI] 40.0-44.9, adult; G89.29 Other chronic pain; K21.9 Gastro-esophageal reflux disease without esophagitis; M19.90 Unspecified osteoarthritis, unspecified site; E03.9 Hypothyroidism, unspecified; E66.01 Morbid (severe) obesity due to excess calories; I11.0 Hypertensive heart disease with heart failure; I89.0 Lymphedema, not elsewhere classified; G47.33 Obstructive sleep apnea (adult) (pediatric); Z96.641 Presence of right artificial hip joint; E11.42 Type 2 diabetes mellitus with diabetic polyneuropathy; E11.51 Type 2 diabetes mellitus with diabetic peripheral angiopathy without gangrene; E78.5 Hyperlipidemia, unspecified; I87.2 Venous insufficiency (chronic) (peripheral); D64.9 Anemia, unspecified; B36.9 Superficial mycosis, unspecified; I27.20 Pulmonary hypertension, unspecified; Z20.828 Contact with and (suspected) exposure to other viral communicable diseases; Z83.3 Family history of diabetes mellitus; Z88.2 Allergy status to sulfonamides; Z88.8 Allergy status to other drugs, medicaments and biological substances
CPT/HCPCS: 36415; 71045; 71250; 80048; 80053; 80202; 81001; 82962; 83036; 83735; 83880; 84443; 85025; 93005; J0878; J1650; J1815; J1940; J2185; J2248; J3370; J7050; J7060; 97116-GP; 97530-GO; 97530-GP; 97535-GO; G0378; J7030